=== PATIENT | male | born 1960 | race American Indian/Alaskan Native ===

== ENCOUNTER 2016-04-13 15:11 | Inpatient (IN) ==
[2016-04-13] MEDS ORDERED: 0.9 % SODIUM CHLORIDE 1,000 ML IV ONE (16:13)
[2016-04-13] MEDS ORDERED: LEVOFLOXACIN 500 MG/100 ML BAG IV ONE (16:15)
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
[2016-04-13 17:09] LABS: Basophils # (Auto) 0 K/mcL (0.0-0.3); Basophils % (Auto) 0.5 % (0.0-2.0); Eosinophils # (Auto) 0.2 K/mcL (0.0-0.7); Granulocytes % (Auto) 74.8 % (38.0-78.0); Lymphocytes # (Auto) 1.7 K/mcL (1.5-4.8); Mean Cell Volume 81.4 fL (80.0-100.0); Monocytes # (Auto) 0.6 K/mcL (0.1-0.9); Monocytes % (Auto) 5.7 % (1.0-9.0); Platelet Count 360 K/mcL (140-440); RBC 4.35 M/mcL (4.50-5.90)
[2016-04-13 17:30] LABS: ALT/SGPT 10 U/l (0-40); Albumin 3.4 gm/dL (3.2-5.2); Albumin/Globulin Ratio 0.8 (1.0-2.3); Alkaline Phosphatase 108 U/L (39-117); Blood Urea Nitrogen 16 mg/dl (6-20); C-Reactive Protein 6.2 mg/dl (0.0-0.8)
[2016-04-13] MEDS ORDERED: metroNIDAZOLE 500 MG/100 ML BAG IV ONE (17:37)
[2016-04-13] MEDS ORDERED: ONDANSETRON 4 MG/2 ML VIAL IV PRN (18:33)
[2016-04-13] MEDS ORDERED: LEVOFLOXACIN 500 MG/100 ML BAG IV SCH (18:45)
[2016-04-13] MEDS: 0.9 % SODIUM CHLORIDE 1,000 ML IV SCH (19:19)
[2016-04-13 19:44] LABS: Hemoglobin A1C 8.4 % HGB (4.0-6.0)
[2016-04-13] MEDS: metroNIDAZOLE 500 MG/100 ML BAG IV SCH (20:40)
[2016-04-13] MEDS ORDERED: INSULIN GLARGINE, HUMAN 1 UNIT/0.01 ML SQ SCH (21:00)
[2016-04-13] MEDS ORDERED: traZODone HCL 50 MG TABLET PO SCH (21:00)
[2016-04-13] MEDS: HYDROcodone/APAP 5/325MG TABLET PO PRN (22:23)
[2016-04-13] MEDS: DIAZEPAM 5 MG TABLET PO PRN (22:23)
[2016-04-13] MEDS: BACLOFEN 10 MG TABLET PO SCH (22:24)
[2016-04-14] MEDS: metroNIDAZOLE 500 MG/100 ML BAG IV SCH ×2 (02:51→21:57)
[2016-04-14] MEDS: HYDROcodone/APAP 5/325MG TABLET PO PRN ×3 (07:37→20:47)
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
[2016-04-14] MEDS ORDERED: BACLOFEN 10 MG TABLET PO PRN (08:16)
[2016-04-14] MEDS ORDERED: DIAZEPAM 5 MG TABLET PO SCH (08:30)
[2016-04-14] MEDS ORDERED: DOCUSATE SODIUM 100 MG CAPSULE PO SCH (09:00)
[2016-04-14] MEDS ORDERED: INSULIN LISPRO 1 UNIT/0.01 ML UNIT SQ SCH (09:00)
[2016-04-14] MEDS: DIAZEPAM 5 MG TABLET PO PRN (09:50)
[2016-04-14] MEDS: BACLOFEN 10 MG TABLET PO SCH ×2 (09:50→23:24)
[2016-04-14] MEDS ORDERED: LEVOFLOXACIN 500 MG/100 ML BAG IV SCH (10:00)
[2016-04-14] MEDS ORDERED: ERTAPENEM 1 GM in 0.9 % SODIUM CHLORIDE 50 ML IV SCH (11:00)
[2016-04-14] MEDS ORDERED: metroNIDAZOLE 500 MG/100 ML BAG IV SCH (14:00)
--- NOTE | 2016-04-14 14:08 | Internal Med Progress Note ---
Medical - PN: Subj Patient information: Note initiated : 04/14/16 at 2:06 pm Service Date, if different from initiated Date: [] Patient: Adam Rutherford 55 y/o M admitted on 04/13/16 for Wound on Sacrum/ Sepsis. Chief Complaint: [] Interval history: 04/13- patient admitted with scrotal/perineal cellulitis with extensive necrosis/ ulceration. Wound care consulted. Started on broad antibiotic coverage in light of multidrug resistant VRE/Klebsiella. Admitted to medical floor 04/14- patient due for surgical debridement. Case discussed with Dr. Rangel wound care physician. Continue antibiotic coverage. Keep nothing by mouth. Review postop. Pre-existing medical condition management on home meds including diabetes/ntispasmodics for paraplegic spasm - Constitutional Vitals: Vital Signs Temp Pulse Resp BP Pulse Ox 97.8 F 94 H 16 113/75 94 04/14/16 12:49 04/14/16 04:00 04/14/16 12:49 04/14/16 12:49 04/14/16 12:49 Period Temp Pulse Resp BP Sys/Hernandez Pulse Ox Last 24 Hr 97.5 F-98.8 F 94-116 16-24 105-126/65-75 91-94 Intake and Output 04/14/16 04/14/16 04/14/16 05:59 13:59 21:59 Intake Total 1779 / 1779 900 / 900 Output Total 1325 / 1325 950 / 950 Balance 454 / 454 -50 / -50 Weight 188 lb Patient Weight 04/15/16 05:59 Weight 188 lb Intake & Output: Intake & Output 04/14/16 04/14/16 04/14/16 05:59 13:59 21:59 Intake Total 1779 / 1779 900 / 900 Output Total 1325 / 1325 950 / 950 Balance 454 / 454 -50 / -50 Weight 188 lb Intake: IV 479 / 479 Sodium Chloride 0.9% 1, 379 / 379 000 ml @ 50 mls/hr IV . Q20H [facility] Rx#:[id number] Oral 1300 / 1300 900 / 900 Output: Urine Catheter Amount 1325 / 1325 950 / 950 Other: Meal Breakfast Percent of Meal Consumed 100% Feeding Ability Independent General appearance: cooperative, no acute distress Exam: alert oriented nonlabored breathing Nondistended abdomen colostomy in place extensive stasis changes Scrotal cellulitis/ulceration Medical - PN: Obj Da - Labs CBC & Chem 7: 04/13/16 16:32 04/13/16 16:32 Meds: Medications Acetaminophen/Hydrocodone Bitart (Fulshear 5/325mg) 1 tab PO Q4HP PRN PRN Reason: Pain Last Admin: 04/14/16 07:37 Dose: 1 tab Baclofen (Lioresal) 10 mg PO BID [facility] Last Admin: 04/14/16 09:50 Dose: 10 mg Diagnostic Test (Pha) (Accu-Chek) 1 each FS DAILY [facility] Last Admin: 04/14/16 07:30 Dose: 1 each Diazepam (Valium) 5 mg PO BIDP PRN PRN Reason: Muscle Spasm Last Admin: 04/14/16 09:50 Dose: 5 mg Docusate Sodium (Colace) 100 mg PO BID [facility] Last Admin: 04/14/16 09:50 Dose: 100 mg Sodium Chloride (Sodium Chloride 0.9%) 1,000 mls @ 50 mls/hr IV .Q20H [facility] Last Infusion: 04/14/16 03:53 Dose: 50 mls/hr Ertapenem 1 gm/ Sodium (Chloride) 50 mls @ 100 mls/hr IV DAILY [facility] Last Admin: 04/14/16 11:34 Dose: 100 mls/hr Metronidazole (Flagyl) 500 mg in 100 mls @ 100 mls/hr IV Q8 CATE Levofloxacin (Levaquin) 500 mg in 100 mls @ 100 mls/hr IV DAILY [facility] Last Admin: 04/14/16 12:12 Dose: 100 mls/hr Insulin Glargine (Lantus) 20 unit SQ HS [facility] Last Admin: 04/13/16 22:24 Dose: 20 unit Insulin Human Lispro (Humalog) 7 unit SQ DAILY [facility] Last Admin: 04/14/16 09:51 Dose: Not Given Ondansetron HCl (Zofran) 4 mg IV Q4HP PRN PRN Reason: Nausea And Vomiting Trazodone HCl (Desyrel) 50 mg PO HS [facility] Last Admin: 04/13/16 22:23 Dose: 50 mg Medical - PN: A/P - Time Spent With Patient Total time spent is greater than 50% in coordination of care (as documented) at patient's floor/unit and/or counseling patient: Greater than 35 minutes (1) Chronic ulcer of skin Problem details: Nonpressure chronic ulcer of skin of other sites limited to breakdown of skin Status: Chronic Assessment and plan: * perineal/scrotal cellulitis/ulcerationmanaged by wound care Issues managed by hospitalist service * [id number]-resistant organisms including VRE/Klebsiella on wound culture. Continue ertapenem * complicated UTI continue ertapenem. * DM type II continue basal prandial insulin * history of paraplegia-Continue antispasmodic as needed * DVT prophylaxis on heparin Plan * wound management per wound care physician Dr. Rangel * antibiotic coverage * pre-existing medical condition management as above * DVT prophylaxis Current Visit: No Medical - PN: Qual - Stroke Symptom Onset Unknown: No
[2016-04-14] MEDS ORDERED: HYDROmorphone 2 MG/ML SYRINGE IV ONE (14:20)
--- NOTE | 2016-04-14 14:47 | History and Physical Report ---
DATE OF ADMISSION: 04/13/2016 REASON FOR ADMISSION: Scrotal wound cellulitis/ulceration. HISTORY OF CHIEF COMPLAINT: The patient is a 55-year-old paraplegic with known history of diabetes and colostomy placement for sacral decubitus ulceration in the past. He lives in [place] along with his nephew. He has been battling with perineal ulceration nonhealing wound involving the scrotum and has been seen by [facility]. However, his symptoms have worsened with increasing swelling, malodorous discharge. He was evaluated at Dr. Rangel's office and was subsequently referred to [facility] for admission for surgical debridement in light of significant cellulitis and localized skin necrosis. Cultures revealed Klebsiella along with VRE, Citrobacter, and corynebacterium and also recent urine culture revealed multidrug resistant Klebsiella pneumonia. The patient was started on Levaquin along with Flagyl per ED physician. Hospitalist Service was requested for admission and for management of antibiotics and diabetes while the patient will be undergoing wound care along with operative debridement by Dr. Rangel. At the time of examination, the patient is alert and oriented. He is in no significant distress. Stable vitals. He was able to provide most of the history. He denies chest pain, shaking chills, drenching sweats, flank pain. He further denies productive sputum, cough, headache, or photophobia. REVIEW OF SYSTEMS: Ten-point review of system was performed and negative except the ones discussed above. PAST MEDICAL HISTORY: 1. Poorly controlled diabetes. 2. History of paraplegia. 3. Anxiety disorder. 4. Recurrent perineal and sacral ulcers/cellulitis. CURRENT MEDICATIONS: 1. Glargine 20 units at bedtime. 2. Baclofen 10 mg q.12h. 3. Diazepam 5 mg q.12h. 4. Lispro 7 units subq daily with meals. 5. Docusate 100 mg b.i.d. PAST SURGICAL HISTORY: 1. Extensive, including splenectomy. 2. Appendectomy. 3. Colonoscopy. 4. Foot surgery. 5. Back surgery. 6. Colostomy 2013 along with revision performed in 12/2013. FAMILY HISTORY: Significant for stomach cancer in mother and sister. SOCIAL HISTORY: Active smoker. No history of alcoholism. He is single and lives in [place]. He sees primary care physician at [facility], BRAXTON Callejas. ALLERGIES: 1. PENICILLIN. 2. MOXIFLOXACIN. PHYSICAL EXAMINATION: GENERAL: The patient is alert and oriented. He denies any active distress. BMI 30. Height 5 feet 6 inches. VITAL SIGNS: Blood pressure 109/65, respiration rate 20, temperature 98.3, pulse 116, sats 98% on room air. HEENT: Pupils symmetric. Oral cavity is dry. No ear or nose discharge. Head is normocephalic and atraumatic. NECK: No lymphadenopathy. HEART: S1, S2, regular rhythm. Ejection systolic murmur grade 1. Diminished breath sounds at bases. ABDOMEN: Soft. Minimally distended. Colostomy in place with no surrounding erythema. Significant scrotal discharge, redness, erythema and swelling along with ulceration at the base. LOWER EXTREMITIES: Stasis changes with extensive pigmentation. No joint swelling. Paraplegic. SKIN: Otherwise, no suspicious lesions. PSYCHIATRIC: Alert and cooperative. Minimal anxiety. NEURO: Paraplegic but at baseline. LABS AND IMAGING: White count 10.1, hemoglobin 11.3, sodium 130, potassium 4.6, creatinine 0.9, BUN 16. LFTs unremarkable. CRP 6.2. ASSESSMENT AND PLAN: A 55-year-old with scrotal/perineal ulcer and cellulitis. 1. Perineal cellulitis/scrotal cutaneous infection and necrosis. Will be managed by Wound Care with debridement. 2. Hospitalist consult for management of antibiotics and medical issues. a. Scrotal cellulitis. Multidrug resistant VRE along with Klebsiella. Continue ertapenem. b. Complicated UTI. Klebsiella. Continue ertapenem. c. Diabetes mellitus type 2. Continue basal prandial insulin. d. History of paraplegia. Continue baclofen and antispasmodic as needed. PLAN FOR TODAY: 1. Admit as inpatient. 2. Wound Care consultation. 3. Keep n.p.o. after midnight. 4. Preexisting medical condition management as above. 5. IV antibiotics including ertapenem. AA:william Job ID: [id number] Doc ID: [id number] Ace [facility] [place] DIVISIONKarla
[2016-04-14] MEDS: 0.9 % SODIUM CHLORIDE 1,000 ML IV SCH ×2 (15:01→19:50)
[2016-04-14] MEDS ORDERED: MIDAZOLAM 2 MG/2 ML VIAL IV ONE (15:20)
[2016-04-14] MEDS ORDERED: BACITRACIN 50,000 UNIT VIAL IR ONE (15:35)
[2016-04-14] MEDS ORDERED: CLINDAMYCIN 600 MG/4 ML VIAL IR ONE (15:35)
[2016-04-14] MEDS ORDERED: GENTAMICIN SULFATE 800 MG/20 ML VIAL IR ONE (15:35)
[2016-04-14] MEDS ORDERED: DIAZEPAM 5 MG TABLET PO PRN (16:20)
--- NOTE | 2016-04-14 18:11 | General Surgery Procedure Note ---
Date of procedure: Note initiated : 04/14/16 at 6:09 pm Service Date, if different from initiated Date: [] Pre-op diagnosis: Sepsis. CSSSI scrotum and right buttock ulcer Post-op diagnosis: same Procedure: Surgical Excision debridement, Tissue biopsies and pathology and pulse lavage irrigation Wound dimension 10 x 5 x 3 CM. Tissue excised slough, skin, sub cutaneous tissue and muscle Findings: Grade infected pressure ulcer with tissue necrosis. Anesthesia: [facility] Surgeon: Adeel Rangel Estimated blood loss: 20 Pathology: other Description of procedure: Surgical Excision , Pulse lavage irrigation and tissue samples for biopsy and culture sensitivity Condition: stable Disposition: floor
[2016-04-14] MEDS ORDERED: HEPARIN 5,000 UNIT/ML VIAL SQ SCH (21:00)
[2016-04-14] MEDS ORDERED: INSULIN GLARGINE, HUMAN 1 UNIT/0.01 ML SQ SCH ×2 (21:00)
[2016-04-14] MEDS: ONDANSETRON 4 MG/2 ML VIAL IV PRN (22:44)
[2016-04-14] MEDS: INSULIN GLARGINE, HUMAN 1 UNIT/0.01 ML SQ SCH (23:24)
[2016-04-14] MEDS: HEPARIN 5,000 UNIT/ML VIAL SQ SCH (23:24)
[2016-04-14] MEDS: traZODone HCL 50 MG TABLET PO SCH (23:24)
[2016-04-14] MEDS: DOCUSATE SODIUM 100 MG CAPSULE PO SCH (23:24)
[2016-04-15] MEDS: metroNIDAZOLE 500 MG/100 ML BAG IV SCH ×3 (04:57→21:48)
[2016-04-15 06:16] LABS: Mean Cell Volume 81.2 fL (80.0-100.0); Mean Corpuscular HGB Conc 32.4 g/dL (31.0-36.0); Mean Corpuscular Hemoglobin 26.3 pg (26.0-34.0); Platelet Count 340 K/mcL (140-440); RBC 4.17 M/mcL (4.50-5.90)
[2016-04-15 07:09] LABS: ALT/SGPT 8 U/l (0-40); Albumin 3.2 gm/dL (3.2-5.2); Albumin/Globulin Ratio 0.9 (1.0-2.3); Alkaline Phosphatase 103 U/L (39-117); Bilirubin,Direct < 0.2 mg/dL (0.0-0.3); Blood Urea Nitrogen 9 mg/dl (6-20); Gamma Glutamyl Transpeptidase 36 U/L (8-61); Magnesium 1.9 mg/dL (1.6-2.5); Phosphorous 3.8 mg/dL (2.7-4.5); Uric Acid 4.3 mg/dL (2.5-8.0)
[2016-04-15] MEDS: HYDROcodone/APAP 5/325MG TABLET PO PRN ×3 (08:01→23:13)
[2016-04-15 09:06] LABS: Anisocytosis 1+ (NONE SEEN); Lymphocytes % 29 % (15-49); Monocytes % (Manual) 4 % (1-9); Platelet Estimate NORMAL (NORMAL); RBC Morphology ABNORM (NORMAL); Segmented Neutrophils % 67 % (38-78)
--- NOTE | 2016-04-15 09:26 | Operative Note ---
DATE OF OPERATION: 04/14/2016 PREOPERATIVE DIAGNOSES: 1. Sepsis syndrome. 2. Complicated skin and skin structure infection involving posterior scrotum, perineal area and right buttock. POSTOPERATIVE DIAGNOSES: 1. Sepsis syndrome. 2. Complicated skin and skin structure infection involving posterior scrotum, perineal area and right buttock. OPERATION: Surgical excisional debridement. Pulse lavage irrigation. Tissue biopsies for pathology and cultures. Wound dimensions 10 cm x 5 cm x 3 cm. Tissue excised: Slough, skin, subcutaneous tissue and muscle. ANESTHESIA: MAC. SENIOR ACCOUNTING CLERK: Edilberto Woody CRNA. SURGEON: Adeel Rangel MD PROCEDURE NOTE: After obtaining informed consent, patient was taken to the operating room. He was placed in right lateral decubitus position. Under hemodynamic monitoring and pulse oxygen saturation check, the procedure was commenced. The area was widely cleaned, prepped and draped in the standard fashion. Intravenous analgesia was provided by the hvac tech. This patient did not need any local anesthetic as he is paraplegic. With appropriate exposure, using tooth pear picker and curved Figueroa scissors or #15 scalpel blade tangential excision of the necrotic slough was carried out from the center to the periphery of the wound. All the nonviable tissue was excised. Tissue specimens were sent for pathology and culture and sensitivity. Hemostasis was achieved with electrocoagulation Bovie, 2-0 Vicryl suture irrigation and ties. The wound was now copiously irrigated. We used over 3 liters of normal saline mixed with 50,000 units of bacitracin solution, 600 mg of clindamycin and 80 mg of gentamicin solution. Upon completion, the field was clean, pink, and hemostasis was satisfactory. Bright red oozing was noted from the wound edges and depth. Hemostasis was easily achieved with pressure and by topical placement of Surgicel. Later, this was reinforced with Xeroform gauze and overlying Kerlix roll soaked in a Betadine solution. Xeroform gauze was folded on itself and held in place with retention sutures of 0 Vicryl. This was further reinforced with ABD pad and Medipore dressings. ESTIMATED BLOOD LOSS: 20 mL Count of swabs, instruments and needles was reported to be correct. Procedure was well tolerated. He was taken from the operating room to the floor in stable satisfactory condition. VD:manish Job ID: [id number] Doc ID: [id number] Aedel Rangel MD
[2016-04-15] MEDS: ERTAPENEM 1 GM in 0.9 % SODIUM CHLORIDE 50 ML IV SCH (09:27)
[2016-04-15] MEDS: HEPARIN 5,000 UNIT/ML VIAL SQ SCH ×2 (09:30→21:47)
[2016-04-15] MEDS: INSULIN LISPRO 1 UNIT/0.01 ML UNIT SQ SCH ×4 (09:30→21:47)
[2016-04-15] MEDS: BACLOFEN 10 MG TABLET PO SCH ×2 (09:30→21:48)
[2016-04-15] MEDS: DOCUSATE SODIUM 100 MG CAPSULE PO SCH ×2 (09:30→21:48)
[2016-04-15] MEDS: LEVOFLOXACIN 500 MG/100 ML BAG IV SCH (10:15)
[2016-04-15] MEDS ORDERED: DEXTROSE 50% 50 ML VIAL IV PRN (11:11)
[2016-04-15] MEDS: 0.9 % SODIUM CHLORIDE 1,000 ML IV SCH ×2 (12:08→21:20)
--- NOTE | 2016-04-15 16:55 | General Surgery Progress Note ---
Subjective Patient reports: other (Patient had an uneventful night. Packing is still in place. Minimal drainage noted around the packing on his diaper.) Narrative: Note initiated : 04/15/16 at 4:51 pm Service Date, if different from initiated Date: [] Patient: Adam Rutherford 55 y/o M admitted on 04/13/16 for Wound on Sacrum/ Sepsis. Chief Complaint: [] Objective Temp Pulse Resp BP Pulse Ox 97.2 F L 100 H 16 104/62 91 04/15/16 15:23 04/15/16 15:23 04/15/16 15:23 04/15/16 15:23 04/15/16 15:23 Afebrile. Vital signs are stable. No changes in COLT. Soft stool in the colostomy bag. condom catheter. Clear urine in the bag postoperative dressing in place. No bleeding. Lab results were reviewed. Preliminary cultures reveal GPC and rare gram positive and gram-negative bacilli.. - Additional Data Intake & Output - Last 24 hours: Intake & Output 04/13/16 04/14/16 04/15/16 04/16/16 05:59 05:59 05:59 05:59 Intake Total 1779 / 2979 1200 / 1200 1190 / 1190 Output Total 1325 / 1325 3325 / 3325 1000 / 1000 Balance 454 / 1654 -2125 / -2125 190 / 190 Weight 188 lb 187 lb 8 oz - Labs 04/15/16 05:15 04/15/16 05:15 Diabetes panel 04/15/16 Range/Units 05:15 Sodium 135 (133-145) mmol/L Potassium 5.2 H (3.3-5.1) mmol/L Chloride 100 (96-108) mmol/L Carbon Dioxide 25 (22-30) mmol/L BUN 9 (6-20) mg/dl Creatinine 0.8 (0.7-1.2) mg/dl Glucose 138 H (70-105) mg/dL Calcium 8.7 (8.6-10.4) mg/dl AST 8 (0-37) U/l ALT 8 (0-40) U/l Alkaline Phosphatase 103 (39-117) U/L Total Protein 6.8 (5.9-8.4) gm/dL Albumin 3.2 (3.2-5.2) gm/dL Triglycerides 230 H (<150) mg/dl Calcium panel 04/15/16 Range/Units 05:15 Calcium 8.7 (8.6-10.4) mg/dl Phosphorus 3.8 (2.7-4.5) mg/dL Albumin 3.2 (3.2-5.2) gm/dL Pituitary panel 04/15/16 Range/Units 05:15 Sodium 135 (133-145) mmol/L Potassium 5.2 H (3.3-5.1) mmol/L Chloride 100 (96-108) mmol/L Carbon Dioxide 25 (22-30) mmol/L BUN 9 (6-20) mg/dl Creatinine 0.8 (0.7-1.2) mg/dl Glucose 138 H (70-105) mg/dL Calcium 8.7 (8.6-10.4) mg/dl Adrenal panel 04/15/16 Range/Units 05:15 Sodium 135 (133-145) mmol/L Potassium 5.2 H (3.3-5.1) mmol/L Chloride 100 (96-108) mmol/L Carbon Dioxide 25 (22-30) mmol/L BUN 9 (6-20) mg/dl Creatinine 0.8 (0.7-1.2) mg/dl Glucose 138 H (70-105) mg/dL Calcium 8.7 (8.6-10.4) mg/dl Total Bilirubin 0.2 (0.0-1.0) mg/dL AST 8 (0-37) U/l ALT 8 (0-40) U/l Alkaline Phosphatase 103 (39-117) U/L Total Protein 6.8 (5.9-8.4) gm/dL Albumin 3.2 (3.2-5.2) gm/dL Medical - PN: A/P - Time Spent With Patient Total time spent is greater than 50% in coordination of care (as documented) at patient's floor/unit and/or counseling patient: Patient is stable and progressing well from surgical point of view. We will remove his packing tomorrow. Further recommendations for wound care to follow. 15 - 24 minutes (1) Sepsis affecting skin Status: Acute Current Visit: Yes (2) Decubitus ulcer, buttock Status: Chronic Current Visit: Yes (3) Chronic ulcer of skin Problem details: Nonpressure chronic ulcer of skin of other sites limited to breakdown of skin Status: Chronic Current Visit: No
--- NOTE | 2016-04-15 21:12 | Internal Med Progress Note ---
Medical - PN: Subj Patient information: Note initiated : 04/15/16 at 9:12 pm Service Date, if different from initiated Date: [] Patient: Adam Rutherford 55 y/o M admitted on 04/13/16 for Wound on Sacrum/ Sepsis. Chief Complaint: [] Interval history: 04/13- patient admitted with scrotal/perineal cellulitis with extensive necrosis/ ulceration. Wound care consulted. Started on broad antibiotic coverage in light of multidrug resistant VRE/Klebsiella. Admitted to medical floor 04/14- patient due for surgical debridement. Case discussed with Dr. Rangel wound care physician. Continue antibiotic coverage. Keep nothing by mouth. Review postop. Pre-existing medical condition management on home meds including diabetes/ntispasmodics for paraplegic spasm 04/15-patient doing well status post operative debridement . refusing LTAC transfer. Ongoing wound care /antibiotics. no overnight fever chills or concerns per staff - Constitutional Vitals: Vital Signs Temp Pulse Resp BP Pulse Ox 98.4 F 103 H 12 127/80 91 04/15/16 19:49 04/15/16 19:49 04/15/16 19:49 04/15/16 19:49 04/15/16 19:49 Period Temp Pulse Resp BP Sys/Hernandez Pulse Ox Last 24 Hr 97.2 F-98.4 F 100-104 12-18 102-127/59-80 91-96 Intake and Output 04/15/16 04/15/16 04/15/16 05:59 13:59 21:59 Intake Total 300 / 300 990 / 990 1250 / 1250 Output Total 1525 / 1525 750 / 750 850 / 850 Balance -1225 / -1225 240 / 240 400 / 400 Intake & Output: Intake & Output 04/15/16 04/15/16 04/15/16 05:59 13:59 21:59 Intake Total 300 / 300 990 / 990 1250 / 1250 Output Total 1525 / 1525 750 / 750 850 / 850 Balance -1225 / -1225 240 / 240 400 / 400 Intake: IV 200 / 200 150 / 150 100 / 100 Sodium Chloride 0.9% 50 50 / 50 ml @ 100 mls/hr IV DAILY [facility] with [facility] 1 [facility] Rx#: [id number] Oral 100 / 100 840 / 840 1150 / 1150 Output: Urine Catheter Amount 1525 / 1525 750 / 750 250 / 250 Void Amount 600 / 600 Other: Meal Lunch Dinner Percent of Meal Consumed 100% 100% Feeding Ability Assist with Tray Set Up Independent # Bowel Movements 1 General appearance: cooperative, no acute distress Exam: lert oriented nonlabored breathing Nondistended abdomen Paraplegic changes lower extremity No anxiety Medical - PN: Obj Da - Labs CBC & Chem 7: 04/16/16 04:45 04/16/16 04:45 Labs: Abnormal Lab Results 04/15/16 04/15/16 05:15 05:15 RBC 4.17 L Hgb 11.0 L Hct 33.9 L RDW 16.0 H RBC Morphology Abnorm A Anisocytosis 1+ A Potassium 5.2 H Glucose 138 H Albumin/Globulin Ratio 0.9 L Triglycerides 230 H Meds: Medications Acetaminophen/Hydrocodone Bitart ([place] 5/325mg) 1 tab PO Q4HP PRN PRN Reason: Pain Last Admin: 04/15/16 16:50 Dose: 1 tab Baclofen (Lioresal) 10 mg PO BID [facility] Last Admin: 04/15/16 09:30 Dose: 10 mg Dextrose (Dextrose 50%) 0 ml IV UD PRN PRN Reason: Hypoglycemia Diagnostic Test (Pha) (Accu-Chek) 1 each FS ACHS [facility] Last Admin: 04/15/16 17:33 Dose: 1 each Diazepam (Valium) 5 mg PO BIDP PRN PRN Reason: Muscle Spasm Last Admin: 04/14/16 23:29 Dose: 5 mg Docusate Sodium (Colace) 100 mg PO BID [facility] Last Admin: 04/15/16 09:30 Dose: 100 mg Heparin Sodium (Porcine) (Heparin) 5,000 unit SQ Q12 [facility] Last Admin: 04/15/16 09:30 Dose: 5,000 unit Ertapenem 1 gm/ Sodium (Chloride) 50 mls @ 100 mls/hr IV DAILY [facility] Last Infusion: 04/15/16 10:00 Dose: Infused Levofloxacin (Levaquin) 500 mg in 100 mls @ 100 mls/hr IV DAILY [facility] Last Infusion: 04/15/16 11:20 Dose: Infused Sodium Chloride (Sodium Chloride 0.9%) 1,000 mls @ 50 mls/hr IV .Q20H [facility] Last Admin: 04/15/16 12:08 Dose: Not Given Metronidazole (Flagyl) 500 mg in 100 mls @ 100 mls/hr IV Q8 [facility] Last Infusion: 04/15/16 14:45 Dose: Infused Insulin Glargine (Lantus) 20 unit SQ HS [facility] Last Admin: 04/14/16 23:24 Dose: 20 unit Insulin Human Lispro (Humalog) 7 unit SQ DAILY [facility] Last Admin: 04/15/16 09:30 Dose: 7 unit Insulin Human Lispro (Humalog) 0 unit SQ ACHS [facility] PRN Reason: Protocol Last Admin: 04/15/16 17:33 Dose: 3 unit Ondansetron HCl (Zofran) 4 mg IV Q4HP PRN PRN Reason: Nausea And Vomiting Last Admin: 04/14/16 22:44 Dose: 4 mg Trazodone HCl (Desyrel) 50 mg PO HS [facility] Last Admin: 04/14/16 23:24 Dose: 50 mg Medical - PN: A/P - Time Spent With Patient Total time spent is greater than 50% in coordination of care (as documented) at patient's floor/unit and/or counseling patient: 25 - 35 minutes (1) Chronic ulcer of skin Status: Chronic Assessment and plan: * perineal/scrotal cellulitis/ulceration- postoperatively 1. managed by wound care. await wound culture. Continue antibiotics Issues managed by hospitalist service * Qtqdknpdfw-Bqoqg-dzwn-resistant organisms including VRE/Klebsiella on wound culture. await repeat blood cultures. * complicated Klebsiella UTI -continue ertapenem based on culture sensitivities. * DM type II continue basal prandial insulin * history of paraplegia-Continue antispasmodic as needed * DVT prophylaxis on heparin Plan * continue wound management per wound care physician Dr. Rangel * case management to arrange SNF transfer. Patient refusing to LTAC * pre-existing medical condition management as above Current Visit: No Medical - PN: Qual - Stroke Symptom Onset Unknown: No
[2016-04-15] MEDS: INSULIN GLARGINE, HUMAN 1 UNIT/0.01 ML SQ SCH (21:46)
[2016-04-15] MEDS: traZODone HCL 50 MG TABLET PO SCH (21:49)
[2016-04-16] MEDS: HYDROcodone/APAP 5/325MG TABLET PO PRN ×2 (03:22→08:28)
[2016-04-16] MEDS: metroNIDAZOLE 500 MG/100 ML BAG IV SCH ×3 (05:28→21:48)
[2016-04-16 05:42] LABS: Mean Cell Volume 81.9 fL (80.0-100.0); Mean Corpuscular HGB Conc 32.1 g/dL (31.0-36.0); Mean Corpuscular Hemoglobin 26.3 pg (26.0-34.0); Platelet Count 343 K/mcL (140-440); RBC 4.07 M/mcL (4.50-5.90); Red Cell Distribution Width 16.1 % (11.5-14.5)
[2016-04-16 06:44] LABS: ALT/SGPT 8 U/l (0-40); Albumin 3.2 gm/dL (3.2-5.2); Albumin/Globulin Ratio 0.9 (1.0-2.3); Alkaline Phosphatase 98 U/L (39-117); Bilirubin,Direct < 0.2 mg/dL (0.0-0.3); Blood Urea Nitrogen 14 mg/dl (6-20); Gamma Glutamyl Transpeptidase 34 U/L (8-61); Magnesium 1.8 mg/dL (1.6-2.5); Phosphorous 3.5 mg/dL (2.7-4.5); Uric Acid 4.7 mg/dL (2.5-8.0)
[2016-04-16] MEDS: DOCUSATE SODIUM 100 MG CAPSULE PO SCH ×2 (08:24→21:43)
[2016-04-16] MEDS: HEPARIN 5,000 UNIT/ML VIAL SQ SCH ×2 (08:24→21:44)
[2016-04-16] MEDS: BACLOFEN 10 MG TABLET PO SCH ×2 (08:24→21:48)
[2016-04-16] MEDS: INSULIN LISPRO 1 UNIT/0.01 ML UNIT SQ SCH ×5 (08:25→21:46)
[2016-04-16] MEDS: 0.9 % SODIUM CHLORIDE 1,000 ML IV SCH (08:25)
[2016-04-16] MEDS: ERTAPENEM 1 GM in 0.9 % SODIUM CHLORIDE 50 ML IV SCH (08:26)
[2016-04-16] MEDS: GENTAMICIN SULFATE 40 MG, CLINDAMYCIN 300 MG, BACITRACIN 25,000 UNIT in SODIUM CHLORIDE... IRR SCH ×2 (08:26→22:03)
[2016-04-16 08:54] LABS: Anisocytosis 1+ (NONE SEEN); Eosinophils % (Manual) 1 % (0-7); Lymphocytes % 30 % (15-49); Monocytes % (Manual) 5 % (1-9); Platelet Estimate NORMAL (NORMAL); RBC Morphology ABNORM (NORMAL); Segmented Neutrophils % 64 % (38-78)
[2016-04-16] MEDS: LEVOFLOXACIN 500 MG/100 ML BAG IV SCH (09:48)
[2016-04-16 11:26] LABS: Appearance,Urine HAZY; Bacteria,Urine FEW /hpf (0); Bilirubin,Urine NEG (NEG); Color,Urine YELLOW; Glucose,Urine (UA) NEGATIVE (NEG); Leukocyte Esterase,Urine 500 /uL (NEG); Mucus,Urine FEW /hpf (0); Nitrate,Urine NEG (NEG); Protein,Urine NEG (NEG); Specific Gravity,Urine 1.006 (1.000-1.035); Urine Blood 0.03 mg/dL (<0.03); Urine RBC 3 /hpf (0-1); Urine Squamous Epithelial Cell 5 /hpf (0-4); Urine WBC > 182 /hpf (0-4); Urobilinogen,Urine NEG (NEG)
--- NOTE | 2016-04-16 11:49 | Internal Med Progress Note ---
Medical - PN: Subj Patient information: Note initiated : 04/16/16 at 11:47 am Service Date, if different from initiated Date: [] Patient: Adam Rutherford 55 y/o M admitted on 04/13/16 for Wound on Sacrum/ Sepsis. Chief Complaint: [] Interval history: 04/13- patient admitted with scrotal/perineal cellulitis with extensive necrosis/ ulceration. Wound care consulted. Started on broad antibiotic coverage in light of multidrug resistant VRE/Klebsiella. Admitted to medical floor 04/14- patient due for surgical debridement. Case discussed with Dr. Rangel wound care physician. Continue antibiotic coverage. Keep nothing by mouth. Review postop. Pre-existing medical condition management on home meds including diabetes/ntispasmodics for paraplegic spasm 04/15-patient doing well status post operative debridement . refusing LTAC transfer. Ongoing wound care /antibiotics. no overnight fever chills or concerns per staff 04/16- case management coordinating local SNF transfer. Postoperative day 2. On antibiotic coverage. initial wound culture enterococci. Await final sensitivities for tailoring antibiotic as outpatient. No other concerns per staff - Constitutional Vitals: Vital Signs Temp Pulse Resp BP Pulse Ox 97.5 F L 102 H 14 109/73 91 04/16/16 07:38 04/16/16 07:38 04/16/16 07:38 04/16/16 07:38 04/16/16 07:38 Period Temp Pulse Resp BP Sys/Hernandez Pulse Ox Last 24 Hr 96.9 F-98.4 F 87-104 12-18 104-127/62-80 91-94 Intake and Output 04/15/16 04/16/16 04/16/16 21:59 05:59 13:59 Intake Total 2250 / 2250 500 / 500 800 / 800 Output Total 850 / 850 2375 / 2375 Balance 1400 / 1400 -1875 / -1875 800 / 800 Weight 183 lb Intake & Output: Intake & Output 04/15/16 04/16/16 04/16/16 21:59 05:59 13:59 Intake Total 2250 / 2250 500 / 500 800 / 800 Output Total 850 / 850 2375 / 2375 Balance 1400 / 1400 -1875 / -1875 800 / 800 Weight 183 lb Intake: IV 1100 / 1100 100 / 100 Sodium Chloride 0.9% 1, 1000 / 1000 000 ml @ 50 mls/hr IV . Q20H [facility] Rx#:[id number] Oral 1150 / 1150 400 / 400 800 / 800 Output: Urine Catheter Amount 250 / 250 2375 / 2375 Void Amount 600 / 600 Other: Meal Dinner Breakfast Percent of Meal Consumed 100% 100% Feeding Ability Independent Independent # Bowel Movements 1 General appearance: cooperative, no acute distress Exam: Nonlabored breathing nonanxious no significant changes since previous day Medical - PN: Obj Da - Labs CBC & Chem 7: 04/16/16 04:45 04/16/16 04:45 Labs: Abnormal Lab Results 04/16/16 04/16/16 04/16/16 10:27 04:45 04:45 RBC 4.07 L Hgb 10.7 L Hct 33.4 L RDW 16.1 H RBC Morphology Abnorm A Anisocytosis 1+ A Potassium Glucose 171 H Calcium 8.4 L Albumin/Globulin Ratio 0.9 L Triglycerides 222 H Urine Occult Blood 0.03 A Ur Leukocyte Esterase 500 A Urine RBC 3 H Urine WBC > 182 H Ur Squamous Epith Cells 5 H Urine Bacteria Few A 04/15/16 04/15/16 05:15 05:15 RBC 4.17 L Hgb 11.0 L Hct 33.9 L RDW 16.0 H RBC Morphology Abnorm A Anisocytosis 1+ A Potassium 5.2 H Glucose 138 H Calcium Albumin/Globulin Ratio 0.9 L Triglycerides 230 H Urine Occult Blood Ur Leukocyte Esterase Urine RBC Urine WBC Ur Squamous Epith Cells Urine Bacteria Meds: Medications Acetaminophen/Hydrocodone Bitart ([place] 5/325mg) 1 tab PO Q4HP PRN PRN Reason: Pain Last Admin: 04/16/16 08:28 Dose: 1 tab Baclofen (Lioresal) 10 mg PO BID [facility] Last Admin: 04/16/16 08:24 Dose: 10 mg Dextrose (Dextrose 50%) 0 ml IV UD PRN PRN Reason: Hypoglycemia Diagnostic Test (Pha) (Accu-Chek) 1 each FS ACHS [facility] Last Admin: 04/16/16 07:46 Dose: 1 each Diazepam (Valium) 5 mg PO BIDP PRN PRN Reason: Muscle Spasm Last Admin: 04/14/16 23:29 Dose: 5 mg Docusate Sodium (Colace) 100 mg PO BID [facility] Last Admin: 04/16/16 08:24 Dose: 100 mg Heparin Sodium (Porcine) (Heparin) 5,000 unit SQ Q12 [facility] Last Admin: 04/16/16 08:24 Dose: 5,000 unit Ertapenem 1 gm/ Sodium (Chloride) 50 mls @ 100 mls/hr IV DAILY [facility] Last Admin: 04/16/16 08:26 Dose: 100 mls/hr Levofloxacin (Levaquin) 500 mg in 100 mls @ 100 mls/hr IV DAILY [facility] Last Admin: 04/16/16 09:48 Dose: 100 mls/hr Sodium Chloride (Sodium Chloride 0.9%) 1,000 mls @ 50 mls/hr IV .Q20H [facility] Last Admin: 04/16/16 08:25 Dose: Not Given Metronidazole (Flagyl) 500 mg in 100 mls @ 100 mls/hr IV Q8 [facility] Last Admin: 04/16/16 05:28 Dose: 100 mls/hr Gentamicin Sulfate 40 mg/Clindamycin Phosphate 300 mg/Bacitracin 25,000 unit/ Sodium Chloride 503 mls @ 0 mls/hr IRR BID [facility] PRN Reason: As Directed Last Admin: 04/16/16 08:26 Dose: Not Given Insulin Glargine (Lantus) 20 unit SQ HS [facility] Last Admin: 04/15/16 21:46 Dose: 20 unit Insulin Human Lispro (Humalog) 7 unit SQ DAILY [facility] Last Admin: 04/16/16 08:25 Dose: 7 unit Insulin Human Lispro (Humalog) 0 unit SQ ACHS [facility] PRN Reason: Protocol Last Admin: 04/16/16 08:25 Dose: 1 unit Ondansetron HCl (Zofran) 4 mg IV Q4HP PRN PRN Reason: Nausea And Vomiting Last Admin: 04/14/16 22:44 Dose: 4 mg Trazodone HCl (Desyrel) 50 mg PO HS [facility] Last Admin: 04/15/16 21:49 Dose: 50 mg Medical - PN: A/P - Time Spent With Patient Total time spent is greater than 50% in coordination of care (as documented) at patient's floor/unit and/or counseling patient: 15 - 24 minutes (1) Chronic ulcer of skin Status: Chronic Assessment and plan: * Perineal/scrotal cellulitis/ulceration- postoperatively day 2. wound culture enterococci await sensitivities.. Continue antibiotics Issues managed by hospitalist service * Perineal/scrotal ykhpomnzgq-Wsbut-vrsj-resistant organisms including VRE/ Klebsiella on wound culture. await repeat blood cultures. * complicated Klebsiella UTI -continue ertapenem based on culture sensitivities. * DM type II continue basal prandial insulin * history of paraplegia-continue home meds * DVT prophylaxis on heparin Plan * continue wound management per Dr. Rangel * SNF transfer once cleared by wound care * pre-existing medical condition management as above * Jodi antibiotics based on sensitivities Current Visit: No Medical - PN: Qual - Stroke Symptom Onset Unknown: No
--- NOTE | 2016-04-16 15:13 | Surgical Pathology Report ---
HISTOLOGY SPECIMEN MICROSCOPIC DIAGNOSIS SOFT TISSUE, SACRUM, DEBRIDEMENT: -- FIBROVASCULAR SOFT TISSUE WITH ISCHEMIC AND SUPPURATIVE NECROSIS AND FIBROSIS. (SEH:adj) CLINICAL HISTORY Decubitus ulcer. GROSS DESCRIPTION Received in formalin labeled with the patient information, are three munoz-bennett tissue fragments from 1.3 to 4.8 cm. Cut surfaces are bennett-brown. Director Of Clinical Education sections submitted in one cassette. (SCB:adj) Electronically Signed by: Elisa Montalvo D.O.
--- NOTE | 2016-04-16 19:42 | General Surgery Progress Note ---
Subjective Patient reports: no new complaints, feels better, pain is less, tolerating a regular diet, bowel movement, afebrile, other (Packing removed from sacral wound. No further bleeding. No drainage and no odor.) Narrative: Note initiated : 04/16/16 at 7:39 pm Service Date, if different from initiated Date: [] Patient: Adam Rutherford 55 y/o M admitted on 04/13/16 for Wound on Sacrum/ Sepsis. Chief Complaint: [] Objective Temp Pulse Resp BP Pulse Ox 98.6 F 105 H 18 119/72 91 04/16/16 19:12 04/16/16 19:12 04/16/16 19:12 04/16/16 19:12 04/16/16 19:12 afebrile. Vital signs are stable. general physical exam within normal limits. Sacral packing is removed. Most of the wound is granulating. No order. Superficial demarcating eschar. This should respond to local wound Care using Vashe solution and topical GCP wet-to-dry dressing change 2 times a day. This patient is not capable of living by himself.. emergency preparedness manager from the [facility] clinic had called to inform that patient lives by himself. His houses not clean for more than a month. His his cousin is supposed to be staying with him but in reality does not. - Additional Data Intake & Output - Last 24 hours: Intake & Output 04/14/16 04/15/16 04/16/16 04/17/16 05:59 05:59 05:59 05:59 Intake Total 1779 / 2979 1200 / 1200 3740 / 3740 2190 / 2190 Output Total 1325 / 1325 3325 / 3325 3975 / 3975 1550 / 1550 Balance 454 / 1654 -2125 / -2125 -235 / -235 640 / 640 Weight 188 lb 187 lb 8 oz 183 lb - Labs 04/16/16 04:45 04/16/16 04:45 Diabetes panel 04/16/16 Range/Units 04:45 Sodium 133 (133-145) mmol/L Potassium 5.0 (3.3-5.1) mmol/L Chloride 97 (96-108) mmol/L Carbon Dioxide 26 (22-30) mmol/L BUN 14 (6-20) mg/dl Creatinine 0.8 (0.7-1.2) mg/dl Glucose 171 H (70-105) mg/dL Calcium 8.4 L (8.6-10.4) mg/dl AST 8 (0-37) U/l ALT 8 (0-40) U/l Alkaline Phosphatase 98 (39-117) U/L Total Protein 6.8 (5.9-8.4) gm/dL Albumin 3.2 (3.2-5.2) gm/dL Triglycerides 222 H (<150) mg/dl Calcium panel 04/16/16 Range/Units 04:45 Calcium 8.4 L (8.6-10.4) mg/dl Phosphorus 3.5 (2.7-4.5) mg/dL Albumin 3.2 (3.2-5.2) gm/dL Pituitary panel 04/16/16 Range/Units 04:45 Sodium 133 (133-145) mmol/L Potassium 5.0 (3.3-5.1) mmol/L Chloride 97 (96-108) mmol/L Carbon Dioxide 26 (22-30) mmol/L BUN 14 (6-20) mg/dl Creatinine 0.8 (0.7-1.2) mg/dl Glucose 171 H (70-105) mg/dL Calcium 8.4 L (8.6-10.4) mg/dl Adrenal panel 04/16/16 Range/Units 04:45 Sodium 133 (133-145) mmol/L Potassium 5.0 (3.3-5.1) mmol/L Chloride 97 (96-108) mmol/L Carbon Dioxide 26 (22-30) mmol/L BUN 14 (6-20) mg/dl Creatinine 0.8 (0.7-1.2) mg/dl Glucose 171 H (70-105) mg/dL Calcium 8.4 L (8.6-10.4) mg/dl Total Bilirubin 0.2 (0.0-1.0) mg/dL AST 8 (0-37) U/l ALT 8 (0-40) U/l Alkaline Phosphatase 98 (39-117) U/L Total Protein 6.8 (5.9-8.4) gm/dL Albumin 3.2 (3.2-5.2) gm/dL Medical - PN: A/P - Time Spent With Patient Total time spent is greater than 50% in coordination of care (as documented) at patient's floor/unit and/or counseling patient: Postoperative day #2. Satisfactory postoperative progress. urine culture to be sent. Wound culture has grown enterococci. Final sensitivity report awaited. continue current ongoing wound care orders. Okay to transfer patient to a rehabilitation or a long term facility. If discharged, follow-up the wound care clinic in 1 week. 15 - 24 minutes (1) Sepsis affecting skin Status: Acute Current Visit: Yes (2) Decubitus ulcer, buttock Status: Chronic Current Visit: Yes (3) Chronic ulcer of skin Status: Chronic Current Visit: No
[2016-04-16] MEDS: traZODone HCL 50 MG TABLET PO SCH (21:44)
[2016-04-16] MEDS: INSULIN GLARGINE, HUMAN 1 UNIT/0.01 ML SQ SCH (21:45)
[2016-04-17] MEDS: 0.9 % SODIUM CHLORIDE 1,000 ML IV SCH ×2 (00:01→04:32)
[2016-04-17] MEDS: metroNIDAZOLE 500 MG/100 ML BAG IV SCH ×3 (05:19→21:55)
[2016-04-17 06:01] LABS: Mean Cell Volume 81.9 fL (80.0-100.0); Mean Corpuscular HGB Conc 32.1 g/dL (31.0-36.0); Mean Corpuscular Hemoglobin 26.3 pg (26.0-34.0); Platelet Count 345 K/mcL (140-440); RBC 4.13 M/mcL (4.50-5.90)
[2016-04-17 06:51] LABS: ALT/SGPT 7 U/l (0-40); Albumin 3.2 gm/dL (3.2-5.2); Albumin/Globulin Ratio 0.9 (1.0-2.3); Alkaline Phosphatase 94 U/L (39-117); Bilirubin,Direct < 0.2 mg/dL (0.0-0.3); Blood Urea Nitrogen 17 mg/dl (6-20); Gamma Glutamyl Transpeptidase 33 U/L (8-61); Magnesium 1.8 mg/dL (1.6-2.5); Phosphorous 3.7 mg/dL (2.7-4.5); Uric Acid 4.8 mg/dL (2.5-8.0)
[2016-04-17 08:19] LABS: Anisocytosis 1+ (NONE SEEN); Eosinophils % (Manual) 5 % (0-7); Lymphocytes % 26 % (15-49); Monocytes % (Manual) 3 % (1-9); Platelet Estimate NORMAL (NORMAL); RBC Morphology ABNORMAL (NORMAL); Segmented Neutrophils % 66 % (38-78)
[2016-04-17] MEDS: INSULIN LISPRO 1 UNIT/0.01 ML UNIT SQ SCH ×5 (08:28→22:05)
[2016-04-17] MEDS: HEPARIN 5,000 UNIT/ML VIAL SQ SCH ×2 (08:29→21:55)
[2016-04-17] MEDS: BACLOFEN 10 MG TABLET PO SCH ×2 (08:29→21:56)
[2016-04-17] MEDS: DOCUSATE SODIUM 100 MG CAPSULE PO SCH ×2 (08:29→21:55)
[2016-04-17] MEDS: GENTAMICIN SULFATE 40 MG, CLINDAMYCIN 300 MG, BACITRACIN 25,000 UNIT in SODIUM CHLORIDE... IRR SCH ×2 (09:42→23:45)
[2016-04-17] MEDS: ERTAPENEM 1 GM in 0.9 % SODIUM CHLORIDE 50 ML IV SCH (09:43)
[2016-04-17] MEDS: HYDROcodone/APAP 5/325MG TABLET PO PRN ×4 (09:58→21:55)
[2016-04-17] MEDS ORDERED: INSULIN GLARGINE, HUMAN 1 UNIT/0.01 ML SQ ONE (10:30)
[2016-04-17] MEDS: LEVOFLOXACIN 500 MG/100 ML BAG IV SCH (10:40)
[2016-04-17] MEDS: sitaGLIPtin 100 MG TABLET PO ONE ×2 (10:44→10:48)
[2016-04-17] MEDS ORDERED: metFORMIN 500 MG TAB.XL.24H PO SCH (11:00)
--- NOTE | 2016-04-17 12:25 | Internal Med Progress Note ---
Medical - PN: Subj Patient information: Note initiated : 04/17/16 at 12:25 pm Service Date, if different from initiated Date: [] Patient: Adam Rutherford 55 y/o M admitted on 04/13/16 for Wound on Sacrum/ Sepsis. Chief Complaint: [] Interval history: 04/13- patient admitted with scrotal/perineal cellulitis with extensive necrosis/ ulceration. Wound care consulted. Started on broad antibiotic coverage in light of multidrug resistant VRE/Klebsiella. Admitted to medical floor 04/14- patient due for surgical debridement. Case discussed with Dr. Rangel wound care physician. Continue antibiotic coverage. Keep nothing by mouth. Review postop. Pre-existing medical condition management on home meds including diabetes/ntispasmodics for paraplegic spasm 04/15-patient doing well status post operative debridement . refusing LTAC transfer. Ongoing wound care /antibiotics. no overnight fever chills or concerns per staff 04/16- case management coordinating local SNF transfer. Postoperative day 2. On antibiotic coverage. initial wound culture enterococci. Await final sensitivities for tailoring antibiotic as outpatient. No other concerns per staff 04/17- patient on ertapenem/levaquin for enterococci/strep viridans on culture. Continue wound care. Await SNF transfer likely Tuesday or Tuesday. UA significant pyuria. On antibiotic coverage. no overnight fever chills or concerns per staff - Constitutional Vitals: Vital Signs Temp Pulse Resp BP Pulse Ox 97.5 F L 99 H 12 122/73 93 04/17/16 11:25 04/17/16 11:25 04/17/16 11:25 04/17/16 11:25 04/17/16 11:25 Period Temp Pulse Resp BP Sys/Hernandez Pulse Ox Last 24 Hr 97.5 F-98.6 F 99-114 12-20 112-122/61-73 90-93 Intake and Output 04/16/16 04/17/16 04/17/16 21:59 05:59 13:59 Intake Total 2040 / 2040 1100 / 1100 100 / 100 Output Total 1850 / 1850 1050 / 1050 1000 / 1000 Balance 190 / 190 50 / 50 -900 / -900 Weight 185 lb 8 oz Intake & Output: Intake & Output 04/16/16 04/17/16 04/17/16 21:59 05:59 13:59 Intake Total 2039 / 2039 1100 / 1100 100 / 100 Output Total 1850 / 1850 1050 / 1050 1000 / 1000 Balance 190 / 190 50 / 50 -900 / -900 Weight 185 lb 8 oz Intake: IV 1100 / 1100 100 / 100 Sodium Chloride 0.9% 1, 1000 / 1000 000 ml @ 50 mls/hr IV . Q20H [facility] Rx#:[id number] Oral 940 / 940 1000 / 1000 100 / 100 Output: Urine Catheter Amount 1850 / 1850 1050 / 1050 500 / 500 Stool 500 / 500 Other: Meal Dinner Breakfast Percent of Meal Consumed 100% 50% Feeding Ability Independent # Bowel Movements 1 General appearance: cooperative, no acute distress Exam: No anxiety lert oriented Nonlabored breathing no ymphedema Medical - PN: Obj Da - Labs CBC & Chem 7: 04/18/16 05:11 04/18/16 05:11 Labs: Abnormal Lab Results 04/17/16 04/17/16 04/16/16 04:40 04:40 10:27 RBC 4.13 L Hgb 10.9 L Hct 33.8 L RDW 16.0 H RBC Morphology Anisocytosis 1+ A Potassium Glucose 194 H Calcium Albumin/Globulin Ratio 0.9 L Triglycerides 203 H Urine Occult Blood 0.03 A Ur Leukocyte Esterase 500 A Urine RBC 3 H Urine WBC > 182 H Ur Squamous Epith Cells 5 H Urine Bacteria Few A 04/16/16 04/16/16 04/15/16 04:45 04:45 05:15 RBC 4.07 L Hgb 10.7 L Hct 33.4 L RDW 16.1 H RBC Morphology Abnorm A Anisocytosis 1+ A Potassium 5.2 H Glucose 171 H 138 H Calcium 8.4 L Albumin/Globulin Ratio 0.9 L 0.9 L Triglycerides 222 H 230 H Urine Occult Blood Ur Leukocyte Esterase Urine RBC Urine WBC Ur Squamous Epith Cells Urine Bacteria 04/15/16 05:15 RBC 4.17 L Hgb 11.0 L Hct 33.9 L RDW 16.0 H RBC Morphology Abnorm A Anisocytosis 1+ A Potassium Glucose Calcium Albumin/Globulin Ratio Triglycerides Urine Occult Blood Ur Leukocyte Esterase Urine RBC Urine WBC Ur Squamous Epith Cells Urine Bacteria Meds: Medications Acetaminophen/Hydrocodone Bitart ([place] 5/325mg) 1 tab PO Q4HP PRN PRN Reason: Pain Last Admin: 04/17/16 09:58 Dose: 1 tab Baclofen (Lioresal) 10 mg PO BID [facility] Last Admin: 04/17/16 08:29 Dose: 10 mg Dextrose (Dextrose 50%) 0 ml IV UD PRN PRN Reason: Hypoglycemia Diagnostic Test (Pha) (Accu-Chek) 1 each FS ACHS [facility] Last Admin: 04/17/16 12:07 Dose: 1 each Diazepam (Valium) 5 mg PO BIDP PRN PRN Reason: Muscle Spasm Last Admin: 04/14/16 23:29 Dose: 5 mg Docusate Sodium (Colace) 100 mg PO BID [facility] Last Admin: 04/17/16 08:29 Dose: 100 mg Heparin Sodium (Porcine) (Heparin) 5,000 unit SQ Q12 [facility] Last Admin: 04/17/16 08:29 Dose: 5,000 unit Ertapenem 1 gm/ Sodium (Chloride) 50 mls @ 100 mls/hr IV DAILY [facility] Last Admin: 04/17/16 09:43 Dose: 100 mls/hr Levofloxacin (Levaquin) 500 mg in 100 mls @ 100 mls/hr IV DAILY [facility] Last Admin: 04/17/16 10:40 Dose: 100 mls/hr Sodium Chloride (Sodium Chloride 0.9%) 1,000 mls @ 50 mls/hr IV .Q20H [facility] Last Admin: 04/17/16 04:32 Dose: Not Given Metronidazole (Flagyl) 500 mg in 100 mls @ 100 mls/hr IV Q8 [facility] Last Admin: 04/17/16 05:19 Dose: 100 mls/hr Gentamicin Sulfate 40 mg/Clindamycin Phosphate 300 mg/Bacitracin 25,000 unit/ Sodium Chloride 503 mls @ 0 mls/hr IRR BID [facility] PRN Reason: As Directed Last Admin: 04/17/16 09:42 Dose: 1 mls/hr Insulin Glargine (Lantus) 26 unit SQ HS [facility] Insulin Human Lispro (Humalog) 7 unit SQ DAILY [facility] Last Admin: 04/17/16 08:28 Dose: 7 unit Insulin Human Lispro (Humalog) 0 unit SQ ACHS [facility] PRN Reason: Protocol Last Admin: 04/17/16 12:06 Dose: 3 unit Ondansetron HCl (Zofran) 4 mg IV Q4HP PRN PRN Reason: Nausea And Vomiting Last Admin: 04/14/16 22:44 Dose: 4 mg Trazodone HCl (Desyrel) 50 mg PO HS [facility] Last Admin: 04/16/16 21:44 Dose: 50 mg Medical - PN: A/P - Time Spent With Patient Total time spent is greater than 50% in coordination of care (as documented) at patient's floor/unit and/or counseling patient: 15 - 24 minutes (1) Chronic ulcer of skin Status: Chronic Assessment and plan: * Perineal/scrotal cellulitis/ulceration- postoperatively day 3. wound culture enterococci/strep viridans.continue Levaquin/rtapenem Issues managed by hospitalist service * Perineal/scrotal jzlyadawta-Flsat-klis-resistant organisms including enterococci/strep viridans. continue Levaquin/ertapenem * complicated Klebsiella UTI -on ertapenem based on culture sensitivities. repeat UA in 48 hours * DM type II continue basal prandial insulin * history of paraplegia-continue home meds * DVT prophylaxis on heparin Plan * continue wound management per Dr. Rangel * await SNF transfer * patient refusing short-acting insulin/oral antidiabetics * pre-existing medical condition management as above * repeat UAIn 48 hours Current Visit: No Medical - PN: Qual - Stroke Symptom Onset Unknown: No
--- NOTE | 2016-04-17 17:51 | General Surgery Progress Note ---
Subjective Patient reports: no new complaints, feels better, tolerating a regular diet, bowel movement, afebrile, other (Tachycardia resolved. Normal WBC. Wound c/s Enterococcus, S pending. ?? VRE) Narrative: Note initiated : 04/17/16 at 5:49 pm Service Date, if different from initiated Date: [] Patient: Adam Rutherford 55 y/o M admitted on 04/13/16 for Wound on Sacrum/ Sepsis. Chief Complaint: [] Objective Temp Pulse Resp BP Pulse Ox 98.1 F 74 14 119/74 93 04/17/16 15:33 04/17/16 15:33 04/17/16 15:33 04/17/16 15:33 04/17/16 15:33 AVSS. No changes COLT. Wound dressings changed BID Lab results reviewed. - Additional Data Intake & Output - Last 24 hours: Intake & Output 04/15/16 04/16/16 04/17/16 04/18/16 05:59 05:59 05:59 05:59 Intake Total 1200 / 1200 3740 / 3740 4290 / 4290 700 / 700 Output Total 3325 / 3325 3975 / 3975 3700 / 3700 1350 / 1350 Balance -2125 / -2125 -235 / -235 590 / 590 -650 / -650 Weight 187 lb 8 oz 183 lb 185 lb 8 oz - Labs 04/17/16 04:40 04/17/16 04:40 Diabetes panel 04/17/16 Range/Units 04:40 Sodium 136 (133-145) mmol/L Potassium 4.8 (3.3-5.1) mmol/L Chloride 99 (96-108) mmol/L Carbon Dioxide 28 (22-30) mmol/L BUN 17 (6-20) mg/dl Creatinine 0.7 (0.7-1.2) mg/dl Glucose 194 H (70-105) mg/dL Calcium 8.7 (8.6-10.4) mg/dl AST 8 (0-37) U/l ALT 7 (0-40) U/l Alkaline Phosphatase 94 (39-117) U/L Total Protein 6.7 (5.9-8.4) gm/dL Albumin 3.2 (3.2-5.2) gm/dL Triglycerides 203 H (<150) mg/dl Calcium panel 04/17/16 Range/Units 04:40 Calcium 8.7 (8.6-10.4) mg/dl Phosphorus 3.7 (2.7-4.5) mg/dL Albumin 3.2 (3.2-5.2) gm/dL Pituitary panel 04/17/16 Range/Units 04:40 Sodium 136 (133-145) mmol/L Potassium 4.8 (3.3-5.1) mmol/L Chloride 99 (96-108) mmol/L Carbon Dioxide 28 (22-30) mmol/L BUN 17 (6-20) mg/dl Creatinine 0.7 (0.7-1.2) mg/dl Glucose 194 H (70-105) mg/dL Calcium 8.7 (8.6-10.4) mg/dl Adrenal panel 04/17/16 Range/Units 04:40 Sodium 136 (133-145) mmol/L Potassium 4.8 (3.3-5.1) mmol/L Chloride 99 (96-108) mmol/L Carbon Dioxide 28 (22-30) mmol/L BUN 17 (6-20) mg/dl Creatinine 0.7 (0.7-1.2) mg/dl Glucose 194 H (70-105) mg/dL Calcium 8.7 (8.6-10.4) mg/dl Total Bilirubin < 0.2 (0.0-1.0) mg/dL AST 8 (0-37) U/l ALT 7 (0-40) U/l Alkaline Phosphatase 94 (39-117) U/L Total Protein 6.7 (5.9-8.4) gm/dL Albumin 3.2 (3.2-5.2) gm/dL Medical - PN: A/P - Time Spent With Patient Total time spent is greater than 50% in coordination of care (as documented) at patient's floor/unit and/or counseling patient: No interval changes in clinical examination. Clinical improvement in SIRS . Await final sensitivity reports and VRE status ( ? Colonized ) Continue present treatment and local wound care. CW / SW input for d/c planning is awaited. 15 - 24 minutes (1) Sepsis affecting skin Status: Acute Current Visit: Yes (2) Decubitus ulcer, buttock Status: Chronic Current Visit: Yes (3) Chronic ulcer of skin Status: Chronic Current Visit: No
[2016-04-17] MEDS: traZODone HCL 50 MG TABLET PO SCH (21:56)
[2016-04-17] MEDS: INSULIN GLARGINE, HUMAN 1 UNIT/0.01 ML SQ SCH (22:04)
[2016-04-18] MEDS: 0.9 % SODIUM CHLORIDE 1,000 ML IV SCH (03:37)
[2016-04-18] MEDS: HYDROcodone/APAP 5/325MG TABLET PO PRN ×4 (03:46→22:21)
[2016-04-18] MEDS: metroNIDAZOLE 500 MG/100 ML BAG IV SCH (05:00)
[2016-04-18 06:16] LABS: Mean Cell Volume 81.9 fL (80.0-100.0); Mean Corpuscular HGB Conc 32.4 g/dL (31.0-36.0); Mean Corpuscular Hemoglobin 26.5 pg (26.0-34.0); Platelet Count 348 K/mcL (140-440); RBC 3.99 M/mcL (4.50-5.90)
[2016-04-18 06:33] LABS: ALT/SGPT 10 U/l (0-40); Albumin 3.2 gm/dL (3.2-5.2); Albumin/Globulin Ratio 0.9 (1.0-2.3); Alkaline Phosphatase 91 U/L (39-117); Bilirubin,Direct < 0.2 mg/dL (0.0-0.3); Blood Urea Nitrogen 15 mg/dl (6-20); Gamma Glutamyl Transpeptidase 32 U/L (8-61); Magnesium 1.8 mg/dL (1.6-2.5); Phosphorous 4.2 mg/dL (2.7-4.5); Uric Acid 4.9 mg/dL (2.5-8.0)
[2016-04-18 08:11] LABS: Anisocytosis 1+ (NONE SEEN); Band Neutrophils % 1 % (0-10); Eosinophils % (Manual) 5 % (0-7); Lymphocytes % 28 % (15-49); Monocytes % (Manual) 5 % (1-9); Myelocytes % 1 % (0-0); Platelet Estimate NORMAL (NORMAL); RBC Morphology ABNORMAL (NORMAL); Segmented Neutrophils % 60 % (38-78)
[2016-04-18] MEDS: INSULIN LISPRO 1 UNIT/0.01 ML UNIT SQ SCH ×5 (08:15→22:19)
[2016-04-18] MEDS: HEPARIN 5,000 UNIT/ML VIAL SQ SCH ×2 (08:16→22:18)
[2016-04-18] MEDS: ERTAPENEM 1 GM in 0.9 % SODIUM CHLORIDE 50 ML IV SCH (08:17)
[2016-04-18] MEDS ORDERED: sitaGLIPtin 100 MG TABLET PO SCH (09:00)
[2016-04-18] MEDS: DOCUSATE SODIUM 100 MG CAPSULE PO SCH ×2 (09:20→22:18)
[2016-04-18] MEDS: LEVOFLOXACIN 500 MG/100 ML BAG IV SCH (09:20)
[2016-04-18] MEDS: BACLOFEN 10 MG TABLET PO SCH ×2 (09:20→22:19)
--- NOTE | 2016-04-18 10:42 | Internal Med Progress Note ---
Medical - PN: Subj Patient information: Note initiated : 04/18/16 at 10:40 am Service Date, if different from initiated Date: [] Patient: Adam Rutherford 55 y/o M admitted on 04/13/16 for Wound on Sacrum/ Sepsis. Chief Complaint: [] Interval history: 04/13- patient admitted with scrotal/perineal cellulitis with extensive necrosis/ ulceration. Wound care consulted. Started on broad antibiotic coverage in light of multidrug resistant VRE/Klebsiella. Admitted to medical floor 04/14- patient due for surgical debridement. Case discussed with Dr. Rangel wound care physician. Continue antibiotic coverage. Keep nothing by mouth. Review postop. Pre-existing medical condition management on home meds including diabetes/ntispasmodics for paraplegic spasm 04/15-patient doing well status post operative debridement . refusing LTAC transfer. Ongoing wound care /antibiotics. no overnight fever chills or concerns per staff 04/16- case management coordinating local SNF transfer. Postoperative day 2. On antibiotic coverage. initial wound culture enterococci. Await final sensitivities for tailoring antibiotic as outpatient. No other concerns per staff 04/17- patient on ertapenem/levaquin for enterococci/strep viridans on culture. Continue wound care. Await SNF transfer likely Tuesday or Tuesday. UA significant pyuria. On antibiotic coverage. no overnight fever chills or concerns per staff 04/18- patient doing well. Blood sugars at goal. Refusing metformin/oral hypoglycemics. Patient uses basal insulin as sliding scale and despite education he would not agree to changes. no significant events over 24 hours - Constitutional Vitals: Vital Signs Temp Pulse Resp BP Pulse Ox 97.1 F L 110 H 12 94/65 91 04/18/16 06:55 04/18/16 06:55 04/18/16 06:55 04/18/16 06:55 04/18/16 06:55 Period Temp Pulse Resp BP Sys/Hernandez Pulse Ox Last 24 Hr 97.1 F-98.1 F 74-114 12-16 94-123/59-78 91-94 Intake and Output 04/17/16 04/18/16 04/18/16 21:59 05:59 13:59 Intake Total 1960 / 1960 220 / 220 360 / 360 Output Total 350 / 350 800 / 800 Balance 1610 / 1610 -580 / -580 360 / 360 Weight 184 lb 8 oz Intake & Output: Intake & Output 04/17/16 04/18/16 04/18/16 21:59 05:59 13:59 Intake Total 1960 / 1960 220 / 220 360 / 360 Output Total 350 / 350 800 / 800 Balance 1610 / 1610 -580 / -580 360 / 360 Weight 184 lb 8 oz Intake: IV 1100 / 1100 100 / 100 Sodium Chloride 0.9% 1, 1000 / 1000 000 ml @ 50 mls/hr IV . Q20H [facility] Rx#:[id number] Oral 860 / 860 120 / 120 360 / 360 Output: Urine Catheter Amount 350 / 350 800 / 800 Other: Meal Dinner Nourishment/Supplement Breakfast Percent of Meal Consumed 100% 100% 75% Feeding Ability Independent Independent General appearance: no acute distress Exam: resting comfortably Working on his laptop Nonlabored breathing pendulous abdomen Medical - PN: Obj Da - Labs CBC & Chem 7: 04/18/16 05:11 04/18/16 05:11 Labs: Abnormal Lab Results 04/18/16 04/18/16 04/17/16 05:11 05:11 04:40 RBC 3.99 L Hgb 10.6 L Hct 32.7 L RDW 16.0 H Myelocytes % 1 H RBC Morphology Anisocytosis 1+ A Glucose 153 H 194 H Calcium 8.3 L Albumin/Globulin Ratio 0.9 L 0.9 L Triglycerides 415 H 203 H Urine Occult Blood Ur Leukocyte Esterase Urine RBC Urine WBC Ur Squamous Epith Cells Urine Bacteria 04/17/16 04/16/16 04/16/16 04:40 10:27 04:45 RBC 4.13 L Hgb 10.9 L Hct 33.8 L RDW 16.0 H Myelocytes % RBC Morphology Anisocytosis 1+ A Glucose 171 H Calcium 8.4 L Albumin/Globulin Ratio 0.9 L Triglycerides 222 H Urine Occult Blood 0.03 A Ur Leukocyte Esterase 500 A Urine RBC 3 H Urine WBC > 182 H Ur Squamous Epith Cells 5 H Urine Bacteria Few A 04/16/16 04:45 RBC 4.07 L Hgb 10.7 L Hct 33.4 L RDW 16.1 H Myelocytes % RBC Morphology Abnorm A Anisocytosis 1+ A Glucose Calcium Albumin/Globulin Ratio Triglycerides Urine Occult Blood Ur Leukocyte Esterase Urine RBC Urine WBC Ur Squamous Epith Cells Urine Bacteria Meds: Medications Acetaminophen/Hydrocodone Bitart ([place] 5/325mg) 1 tab PO Q4HP PRN PRN Reason: Pain Last Admin: 04/18/16 09:19 Dose: 1 tab Baclofen (Lioresal) 10 mg PO BID [facility] Last Admin: 04/18/16 09:20 Dose: 10 mg Dextrose (Dextrose 50%) 0 ml IV UD PRN PRN Reason: Hypoglycemia Diagnostic Test (Pha) (Accu-Chek) 1 each FS ACHS [facility] Last Admin: 04/18/16 08:14 Dose: 1 each Diazepam (Valium) 5 mg PO BIDP PRN PRN Reason: Muscle Spasm Last Admin: 04/14/16 23:29 Dose: 5 mg Docusate Sodium (Colace) 100 mg PO BID [facility] Last Admin: 04/18/16 09:20 Dose: 100 mg Heparin Sodium (Porcine) (Heparin) 5,000 unit SQ Q12 [facility] Last Admin: 04/18/16 08:16 Dose: 5,000 unit Ertapenem 1 gm/ Sodium (Chloride) 50 mls @ 100 mls/hr IV DAILY [facility] Last Admin: 04/18/16 08:17 Dose: 100 mls/hr Levofloxacin (Levaquin) 500 mg in 100 mls @ 100 mls/hr IV DAILY [facility] Last Admin: 04/18/16 09:20 Dose: 100 mls/hr Sodium Chloride (Sodium Chloride 0.9%) 1,000 mls @ 50 mls/hr IV .Q20H [facility] Last Admin: 04/18/16 03:37 Dose: 50 mls/hr Gentamicin Sulfate 40 mg/Clindamycin Phosphate 300 mg/Bacitracin 25,000 unit/ Sodium Chloride 503 mls @ 0 mls/hr IRR BID [facility] PRN Reason: As Directed Last Admin: 04/17/16 23:45 Dose: 1 mls/hr Insulin Glargine (Lantus) 26 unit SQ HS [facility] Last Admin: 04/17/16 22:04 Dose: 26 unit Insulin Human Lispro (Humalog) 7 unit SQ DAILY [facility] Last Admin: 04/18/16 08:15 Dose: 7 unit Insulin Human Lispro (Humalog) 0 unit SQ ACHS [facility] PRN Reason: Protocol Last Admin: 04/18/16 08:16 Dose: 2 unit Ondansetron HCl (Zofran) 4 mg IV Q4HP PRN PRN Reason: Nausea And Vomiting Last Admin: 04/14/16 22:44 Dose: 4 mg Trazodone HCl (Desyrel) 50 mg PO HS [facility] Last Admin: 04/17/16 21:56 Dose: 50 mg Medical - PN: A/P - Time Spent With Patient Total time spent is greater than 50% in coordination of care (as documented) at patient's floor/unit and/or counseling patient: 15 - 24 minutes (1) Chronic ulcer of skin Status: Chronic Assessment and plan: * Perineal/scrotal cellulitis/ulceration- postoperatively day 4. on antibiotic coverage for enterococci/[ Issues managed by hospitalist service * Perineal/scrotal cellulitis- clinically improving on antibiotics * complicated Klebsiella UTI -on ABX. Repeat UA in 24 hours * DM type II continue basal prandial insulin * history of paraplegia-continue home meds * DVT prophylaxis on heparin Plan * continue wound management per Dr. Rangel * antibiotic coverage. Await sensitivities * UA in 24 hours * possible SNF transfer in 48 hours Current Visit: No Medical - PN: Qual - Stroke Symptom Onset Unknown: No
[2016-04-18] MEDS: GENTAMICIN SULFATE 40 MG, CLINDAMYCIN 300 MG, BACITRACIN 25,000 UNIT in SODIUM CHLORIDE... IRR SCH (10:44)
[2016-04-18] MEDS: ONDANSETRON 4 MG/2 ML VIAL IV PRN (14:27)
[2016-04-18] MEDS: LINEZOLID 600 MG TABLET PO SCH (22:18)
[2016-04-18] MEDS: traZODone HCL 50 MG TABLET PO SCH (22:18)
[2016-04-18] MEDS: INSULIN GLARGINE, HUMAN 1 UNIT/0.01 ML SQ SCH (22:19)
[2016-04-19] MEDS: GENTAMICIN SULFATE 40 MG, CLINDAMYCIN 300 MG, BACITRACIN 25,000 UNIT in SODIUM CHLORIDE... IRR SCH ×3 (00:45→21:10)
[2016-04-19] MEDS: HYDROcodone/APAP 5/325MG TABLET PO PRN ×4 (01:56→20:54)
[2016-04-19] MEDS: 0.9 % SODIUM CHLORIDE 1,000 ML IV SCH ×2 (03:24→18:35)
[2016-04-19] MEDS: INSULIN LISPRO 1 UNIT/0.01 ML UNIT SQ SCH ×5 (08:50→21:09)
[2016-04-19] MEDS: HEPARIN 5,000 UNIT/ML VIAL SQ SCH ×2 (08:51→21:09)
[2016-04-19] MEDS: BACLOFEN 10 MG TABLET PO SCH ×2 (08:51→21:09)
[2016-04-19] MEDS: LINEZOLID 600 MG TABLET PO SCH ×2 (08:51→21:08)
[2016-04-19] MEDS: LEVOFLOXACIN 500 MG/100 ML BAG IV SCH (08:52)
[2016-04-19] MEDS: DOCUSATE SODIUM 100 MG CAPSULE PO SCH ×2 (09:00→21:08)
[2016-04-19 12:22] LABS: Appearance,Urine CLEAR; Bacteria,Urine FEW /hpf (0); Bilirubin,Urine NEG (NEG); Color,Urine YELLOW; Glucose,Urine (UA) NEGATIVE (NEG); Leukocyte Esterase,Urine 500 /uL (NEG); Mucus,Urine FEW /hpf (0); Nitrate,Urine NEG (NEG); Protein,Urine NEG (NEG); Specific Gravity,Urine 1.011 (1.000-1.035); Urine Blood NEG mg/dL (<0.03); Urine RBC 21 /hpf (0-1); Urine Squamous Epithelial Cell < 1 /hpf (0-4); Urine WBC > 182 /hpf (0-4); Urobilinogen,Urine NEG (NEG)
--- NOTE | 2016-04-19 17:00 | Internal Med Progress Note ---
Medical - PN: Subj Patient information: Note initiated : 04/19/16 at 5:00 pm Service Date, if different from initiated Date: [] Patient: Adam Rutherford 55 y/o M admitted on 04/13/16 for Wound on Sacrum/ Sepsis. Chief Complaint: [] Interval history: 04/13- patient admitted with scrotal/perineal cellulitis with extensive necrosis/ ulceration. Wound care consulted. Started on broad antibiotic coverage in light of multidrug resistant VRE/Klebsiella. Admitted to medical floor 04/14- patient due for surgical debridement. Case discussed with Dr. Rangel wound care physician. Continue antibiotic coverage. Keep nothing by mouth. Review postop. Pre-existing medical condition management on home meds including diabetes/ntispasmodics for paraplegic spasm 04/15-patient doing well status post operative debridement . refusing LTAC transfer. Ongoing wound care /antibiotics. no overnight fever chills or concerns per staff 04/16- case management coordinating local SNF transfer. Postoperative day 2. On antibiotic coverage. initial wound culture enterococci. Await final sensitivities for tailoring antibiotic as outpatient. No other concerns per staff 04/17- patient on ertapenem/levaquin for enterococci/strep viridans on culture. Continue wound care. Await SNF transfer likely Tuesday or Tuesday. UA significant pyuria. On antibiotic coverage. no overnight fever chills or concerns per staff 04/18- patient doing well. Blood sugars at goal. Refusing metformin/oral hypoglycemics. Patient uses basal insulin as sliding scale and despite education he would not agree to changes. no significant events over 24 hours 04/19- o changes since previous day.alert oriented. Ongoing wound care. Await placement. On antibiotic coverage. - Constitutional Vitals: Vital Signs Temp Pulse Resp BP Pulse Ox 98.4 F 101 H 18 128/82 90 04/19/16 12:00 04/19/16 12:00 04/19/16 12:00 04/19/16 12:00 04/19/16 12:00 Period Temp Pulse Resp BP Sys/Hernandez Pulse Ox Last 24 Hr 96.9 F-98.4 F 95-101 16-18 92-128/54-82 90-92 Intake and Output 04/19/16 04/19/16 04/19/16 05:59 13:59 21:59 Intake Total 1700 / 1700 240 / 240 Output Total 950 / 950 1350 / 1350 Balance 750 / 750 -1110 / -1110 Weight 185 lb Patient Weight 04/20/16 05:59 Weight 185 lb Intake & Output: Intake & Output 04/19/16 04/19/16 04/19/16 05:59 13:59 21:59 Intake Total 1700 / 1700 240 / 240 Output Total 950 / 950 1350 / 1350 Balance 750 / 750 -1110 / -1110 Weight 185 lb Intake: IV 1000 / 1000 Sodium Chloride 0.9% 1, 1000 / 1000 000 ml @ 50 mls/hr IV . Q20H [facility] Rx#:[id number] Oral 700 / 700 240 / 240 Output: Urine Catheter Amount 950 / 950 1350 / 1350 Other: Meal Lunch Percent of Meal Consumed 100% General appearance: no acute distress Exam: paraplegic at baseline scrotal/perineal wounds wrapped in dressing No anxiety No pallor Medical - PN: Obj Da - Labs CBC & Chem 7: 04/18/16 05:11 04/18/16 05:11 Labs: Abnormal Lab Results 04/19/16 04/18/16 04/18/16 10:31 05:11 05:11 RBC 3.99 L Hgb 10.6 L Hct 32.7 L RDW 16.0 H Myelocytes % 1 H Anisocytosis 1+ A Glucose 153 H Calcium 8.3 L Albumin/Globulin Ratio 0.9 L Triglycerides 415 H Ur Leukocyte Esterase 500 A Urine RBC 21 H Urine WBC > 182 H Urine Bacteria Few A 04/17/16 04/17/16 04:40 04:40 RBC 4.13 L Hgb 10.9 L Hct 33.8 L RDW 16.0 H Myelocytes % Anisocytosis 1+ A Glucose 194 H Calcium Albumin/Globulin Ratio 0.9 L Triglycerides 203 H Ur Leukocyte Esterase Urine RBC Urine WBC Urine Bacteria Meds: Medications Acetaminophen/Hydrocodone Bitart ([place] 5/325mg) 1 tab PO Q4HP PRN PRN Reason: Pain Last Admin: 04/19/16 14:33 Dose: 1 tab Baclofen (Lioresal) 10 mg PO BID [facility] Last Admin: 04/19/16 08:51 Dose: 10 mg Dextrose (Dextrose 50%) 0 ml IV UD PRN PRN Reason: Hypoglycemia Diagnostic Test (Pha) (Accu-Chek) 1 each FS ACHS [facility] Last Admin: 04/19/16 11:29 Dose: 1 each Diazepam (Valium) 5 mg PO BIDP PRN PRN Reason: Muscle Spasm Last Admin: 04/14/16 23:29 Dose: 5 mg Docusate Sodium (Colace) 100 mg PO BID [facility] Last Admin: 04/18/16 22:18 Dose: 100 mg Heparin Sodium (Porcine) (Heparin) 5,000 unit SQ Q12 [facility] Last Admin: 04/19/16 08:51 Dose: 5,000 unit Levofloxacin (Levaquin) 500 mg in 100 mls @ 100 mls/hr IV DAILY [facility] Last Admin: 04/19/16 08:52 Dose: 100 mls/hr Sodium Chloride (Sodium Chloride 0.9%) 1,000 mls @ 50 mls/hr IV .Q20H [facility] Last Admin: 04/19/16 03:24 Dose: 50 mls/hr Gentamicin Sulfate 40 mg/Clindamycin Phosphate 300 mg/Bacitracin 25,000 unit/ Sodium Chloride 503 mls @ 0 mls/hr IRR BID [facility] PRN Reason: As Directed Last Admin: 04/19/16 08:57 Dose: 1 mls/hr Insulin Glargine (Lantus) 26 unit SQ HS [facility] Last Admin: 04/18/16 22:19 Dose: 26 unit Insulin Human Lispro (Humalog) 7 unit SQ DAILY [facility] Last Admin: 04/19/16 08:50 Dose: 7 unit Insulin Human Lispro (Humalog) 0 unit SQ [facility] PRN Reason: Protocol Last Admin: 04/19/16 11:29 Dose: Not Given Linezolid (Zyvox) 600 mg PO Q12 [facility] Last Admin: 04/19/16 08:51 Dose: 600 mg Ondansetron HCl (Zofran) 4 mg IV Q4HP PRN PRN Reason: Nausea And Vomiting Last Admin: 04/18/16 14:27 Dose: 4 mg Trazodone HCl (Desyrel) 50 mg PO HS [facility] Last Admin: 04/18/16 22:18 Dose: 50 mg Medical - PN: A/P - Time Spent With Patient Total time spent is greater than 50% in coordination of care (as documented) at patient's floor/unit and/or counseling patient: 15 - 24 minutes (1) Chronic ulcer of skin Status: Chronic Assessment and plan: * Perineal/scrotal cellulitis/ulceration- postoperatively day 5. on antibiotic coverage for VRE- linezolid. Issues managed by hospitalist service * Perineal/scrotal cellulitis- clinically improving on antibiotics * complicated Klebsiella UTI -persistent pyuria. Await culture sensitivities * DM type II continue basal prandial insulin * history of paraplegia-continue home meds * DVT prophylaxis on heparin Plan * continue wound management per Dr. Rangel * DC antivirals and 48 hours(status post 10 day treatment) * await urine cultures * await SNF transfer Current Visit: No Medical - PN: Qual - Stroke Symptom Onset Unknown: No
--- NOTE | 2016-04-19 19:39 | General Surgery Progress Note ---
Subjective Patient reports: no new complaints, other (postoperative day #5. ) Narrative: Note initiated : 04/19/16 at 7:34 pm Service Date, if different from initiated Date: [] Patient: Adam Rutherford 55 y/o M admitted on 04/13/16 for Wound on Sacrum/ Sepsis. Chief Complaint: [] Objective Temp Pulse Resp BP Pulse Ox 97.9 F 100 H 18 133/79 88 L 04/19/16 16:00 04/19/16 16:00 04/19/16 16:00 04/19/16 16:00 04/19/16 16:00 Afebrile. Vital signs are stable. General physical examination is unchanged from before. Scrotal perineal right buttock wound was examined in the morning along with Chary and nursing staff on the [facility] surgical floor. this wound is responding to local wound care. There is significant of the wound extending towards the prostate area. This however seems to be demarcating well. There is no odor. Granulations around the wound are pink and moist. Microbiology results reveal growth of VRE, Streptococcus viridans and an anaerobic bacteria. VRE however seems to be sensitive to ampicillin. - Additional Data Intake & Output - Last 24 hours: Intake & Output 04/17/16 04/18/16 04/19/16 04/20/16 05:59 05:59 05:59 05:59 Intake Total 4290 / 4290 2530 / 2530 3440 / 3440 720 / 720 Output Total 3700 / 3700 2150 / 2150 3100 / 3100 1350 / 1350 Balance 590 / 590 380 / 380 340 / 340 -630 / -630 Weight 185 lb 8 oz 184 lb 8 oz 185 lb 185 lb - Labs 04/18/16 05:11 04/18/16 05:11 Medical - PN: A/P - Time Spent With Patient Total time spent is greater than 50% in coordination of care (as documented) . Septic inflammatory response syndrome due to complicated skin and skin structure infection After initial debridement, patient is getting local wound care. mental health case manager and social workers are working on getting a placement for this patient in the local area. Patient does not want to go anywhere else for rehabilitation. He is not capable of living by himself. plan discharge to a detention facility with continuation of local wound systemic oral antibiotics. Follow-up at the wound care center in 1 week for continuation of ongoing wound care management. 15 - 24 minutes (1) Sepsis affecting skin Status: Acute Current Visit: Yes (2) Decubitus ulcer, buttock Status: Chronic Current Visit: Yes (3) Chronic ulcer of skin Status: Chronic Current Visit: No
[2016-04-19] MEDS: traZODone HCL 50 MG TABLET PO SCH (21:08)
[2016-04-19] MEDS: INSULIN GLARGINE, HUMAN 1 UNIT/0.01 ML SQ SCH (21:09)
[2016-04-20] MEDS: 0.9 % SODIUM CHLORIDE 1,000 ML IV SCH ×3 (00:32→22:04)
[2016-04-20] MEDS: HYDROcodone/APAP 5/325MG TABLET PO PRN ×2 (01:00→20:36)
[2016-04-20] MEDS: INSULIN LISPRO 1 UNIT/0.01 ML UNIT SQ SCH ×5 (07:57→22:34)
[2016-04-20] MEDS: LEVOFLOXACIN 500 MG/100 ML BAG IV SCH (09:07)
[2016-04-20] MEDS: HEPARIN 5,000 UNIT/ML VIAL SQ SCH ×2 (09:08→22:04)
[2016-04-20] MEDS: LINEZOLID 600 MG TABLET PO SCH ×2 (09:08→22:02)
[2016-04-20] MEDS: BACLOFEN 10 MG TABLET PO SCH ×2 (09:08→22:03)
[2016-04-20] MEDS: GENTAMICIN SULFATE 40 MG, CLINDAMYCIN 300 MG, BACITRACIN 25,000 UNIT in SODIUM CHLORIDE... IRR SCH ×2 (09:08→22:04)
[2016-04-20] MEDS: DOCUSATE SODIUM 100 MG CAPSULE PO SCH ×2 (09:08→22:03)
--- NOTE | 2016-04-20 09:52 | Internal Med Progress Note ---
Medical - PN: Subj Patient information: Note initiated : 04/20/16 at 9:52 am Service Date, if different from initiated Date: [] Patient: Adam Rutherford 55 y/o M admitted on 04/13/16 for Wound on Sacrum/ Sepsis. Chief Complaint: [] Interval history: 04/13- patient admitted with scrotal/perineal cellulitis with extensive necrosis/ ulceration. Wound care consulted. Started on broad antibiotic coverage in light of multidrug resistant VRE/Klebsiella. Admitted to medical floor 04/14- patient due for surgical debridement. Case discussed with Dr. Rangel wound care physician. Continue antibiotic coverage. Keep nothing by mouth. Review postop. Pre-existing medical condition management on home meds including diabetes/ntispasmodics for paraplegic spasm 04/15-patient doing well status post operative debridement . refusing LTAC transfer. Ongoing wound care /antibiotics. no overnight fever chills or concerns per staff 04/16- case management coordinating local SNF transfer. Postoperative day 2. On antibiotic coverage. initial wound culture enterococci. Await final sensitivities for tailoring antibiotic as outpatient. No other concerns per staff 04/17- patient on ertapenem/levaquin for enterococci/strep viridans on culture. Continue wound care. Await SNF transfer likely Tuesday or Tuesday. UA significant pyuria. On antibiotic coverage. no overnight fever chills or concerns per staff 04/18- patient doing well. Blood sugars at goal. Refusing metformin/oral hypoglycemics. Patient uses basal insulin as sliding scale and despite education he would not agree to changes. no significant events over 24 hours 04/19- o changes since previous day.alert oriented. Ongoing wound care. Await placement. On antibiotic coverage. 04/20- Pt on abx. improving cellulitis, post op day 7. VRE on Cx. Persistant pyuria. Per physician ID recommends zosyn and daptomycin to continue for wound infection. no overnight F/C/N/V. Pat complains of perineal itching. Stable BGs and hemodynamics - Constitutional Vitals: Vital Signs Temp Pulse Resp BP Pulse Ox 97.4 F L 93 H 18 122/71 91 04/20/16 03:39 04/20/16 03:39 04/20/16 03:39 04/20/16 03:39 04/20/16 03:39 Period Temp Pulse Resp BP Sys/Hernandez Pulse Ox Last 24 Hr 97.4 F-98.4 F 93-102 18-18 122-133/71-82 88-92 Intake and Output 04/19/16 04/20/16 04/20/16 21:59 05:59 13:59 Intake Total 1280 / 1280 2000 / 2000 Output Total 1400 / 1400 Balance 1280 / 1280 600 / 600 Weight 185 lb 8 oz Intake & Output: Intake & Output 04/19/16 04/20/16 04/20/16 21:59 05:59 13:59 Intake Total 1280 / 1280 2000 / 2000 Output Total 1400 / 1400 Balance 1280 / 1280 600 / 600 Weight 185 lb 8 oz Intake: IV 1000 / 1000 Sodium Chloride 0.9% 1, 1000 / 1000 000 ml @ 50 mls/hr IV . Q20H [facility] Rx#:[id number] Oral 1280 / 1280 1000 / 1000 Output: Urine Catheter Amount 1400 / 1400 Other: Meal Dinner Percent of Meal Consumed 100% # Bowel Movements 1 General appearance: cooperative, no acute distress Exam: alert and oriented. Non labored breathing Nt,ND abd No anxiety Medical - PN: Obj Da - Labs CBC & Chem 7: 04/18/16 05:11 04/18/16 05:11 Labs: Abnormal Lab Results 04/19/16 04/18/16 04/18/16 10:31 05:11 05:11 RBC 3.99 L Hgb 10.6 L Hct 32.7 L RDW 16.0 H Myelocytes % 1 H Anisocytosis 1+ A Glucose 153 H Calcium 8.3 L Albumin/Globulin Ratio 0.9 L Triglycerides 415 H Ur Leukocyte Esterase 500 A Urine RBC 21 H Urine WBC > 182 H Urine Bacteria Few A Meds: Medications Acetaminophen/Hydrocodone Bitart ([place] 5/325mg) 1 tab PO Q4HP PRN PRN Reason: Pain Last Admin: 04/20/16 01:00 Dose: 1 tab Baclofen (Lioresal) 10 mg PO BID [facility] Last Admin: 04/20/16 09:08 Dose: 10 mg Dextrose (Dextrose 50%) 0 ml IV UD PRN PRN Reason: Hypoglycemia Diagnostic Test (Pha) (Accu-Chek) 1 each FS ACHS [facility] Last Admin: 04/20/16 07:21 Dose: 1 each Diazepam (Valium) 5 mg PO BIDP PRN PRN Reason: Muscle Spasm Last Admin: 04/14/16 23:29 Dose: 5 mg Docusate Sodium (Colace) 100 mg PO BID [facility] Last Admin: 04/20/16 09:08 Dose: 100 mg Heparin Sodium (Porcine) (Heparin) 5,000 unit SQ Q12 [facility] Last Admin: 04/20/16 09:08 Dose: 5,000 unit Levofloxacin (Levaquin) 500 mg in 100 mls @ 100 mls/hr IV DAILY [facility] Last Admin: 04/20/16 09:07 Dose: 100 mls/hr Sodium Chloride (Sodium Chloride 0.9%) 1,000 mls @ 50 mls/hr IV .Q20H [facility] Last Admin: 04/20/16 00:32 Dose: 50 mls/hr Gentamicin Sulfate 40 mg/Clindamycin Phosphate 300 mg/Bacitracin 25,000 unit/ Sodium Chloride 503 mls @ 0 mls/hr IRR BID [facility] PRN Reason: As Directed Last Admin: 04/20/16 09:08 Dose: 1 mls/hr Insulin Glargine (Lantus) 26 unit SQ HS [facility] Last Admin: 04/19/16 21:09 Dose: 26 unit Insulin Human Lispro (Humalog) 7 unit SQ DAILY [facility] Last Admin: 04/20/16 07:57 Dose: 7 unit Insulin Human Lispro (Humalog) 0 unit SQ ACHS [facility] PRN Reason: Protocol Last Admin: 04/20/16 07:57 Dose: 1 unit Linezolid (Zyvox) 600 mg PO Q12 [facility] Last Admin: 04/20/16 09:08 Dose: 600 mg Ondansetron HCl (Zofran) 4 mg IV Q4HP PRN PRN Reason: Nausea And Vomiting Last Admin: 04/18/16 14:27 Dose: 4 mg Trazodone HCl (Desyrel) 50 mg PO HS [facility] Last Admin: 04/19/16 21:08 Dose: 50 mg Medical - PN: A/P - Time Spent With Patient Total time spent is greater than 50% in coordination of care (as documented) at patient's floor/unit and/or counseling patient: 15 - 24 minutes (1) Chronic ulcer of skin Status: Chronic Assessment and plan: * Perineal/scrotal cellulitis/ulceration- postoperatively day 5. on antibiotic coverage for VRE- linezolid. Issues managed by hospitalist service * Perineal/scrotal cellulitis- clinically improving on antibiotics * complicated Klebsiella UTI -persistent pyuria. Await culture sensitivities * DM type II continue basal prandial insulin * history of paraplegia-continue home meds * DVT prophylaxis on heparin Plan * continue wound management per Dr. Rangel * Abx as per Dr Karla chaney * await LTC transfer Current Visit: No Medical - PN: Qual - Stroke Symptom Onset Unknown: No
--- NOTE | 2016-04-20 11:30 | General Surgery Progress Note ---
Subjective Patient reports: no new complaints, other (Ongoing local wound care. Wound cultures reviewed with Dr. FULTON. Infectious Disease specialist.) Narrative: Note initiated : 04/20/16 at 11:28 am Service Date, if different from initiated Date: [] Patient: Adam Rutherford 55 y/o M admitted on 04/13/16 for Wound on Sacrum/ Sepsis. Chief Complaint: [] Objective Temp Pulse Resp BP Pulse Ox 97.9 F 102 H 18 123/76 92 04/20/16 11:05 04/20/16 11:05 04/20/16 11:05 04/20/16 11:05 04/20/16 08:00 AVSS. No acute changes in COLT. Perineal wound is clean and covered with progressive granulating areas. Wound care reviewed with Danii GARSIA and Med Surg nursing staff. - Additional Data Intake & Output - Last 24 hours: Intake & Output 04/18/16 04/19/16 04/20/16 04/21/16 05:59 05:59 05:59 05:59 Intake Total 2530 / 2530 3440 / 3440 3620 / 3620 600 / 600 Output Total 2150 / 2150 3100 / 3100 2750 / 2750 Balance 380 / 380 340 / 340 870 / 870 600 / 600 Weight 184 lb 8 oz 185 lb 185 lb 8 oz - Labs 04/18/16 05:11 04/18/16 05:11 Medical - PN: A/P - Time Spent With Patient Total time spent is greater than 50% in coordination of care (as documented) at patient's floor/unit and/or counseling patient: Patient is stable from wound care point of view. ID Recommendations: Reg. Antibiotics coverage. DAPTOMYCIN 6 mg/kg dose ( for VRE coverage ) Zosyn 3. 375 Grams Q 6 hrly. Patient CAN BE transferred to a SNF or Rehab institution with ongoing wound care and antibiotic coverage. 15 - 24 minutes (1) Sepsis affecting skin Status: Acute Current Visit: Yes (2) Decubitus ulcer, buttock Status: Chronic Current Visit: Yes (3) Chronic ulcer of skin Status: Chronic Current Visit: No
[2016-04-20] MEDS: traZODone HCL 50 MG TABLET PO SCH (22:03)
[2016-04-20] MEDS: INSULIN GLARGINE, HUMAN 1 UNIT/0.01 ML SQ SCH (22:34)
[2016-04-21] MEDS: HYDROcodone/APAP 5/325MG TABLET PO PRN ×5 (01:50→23:56)
[2016-04-21] MEDS: INSULIN LISPRO 1 UNIT/0.01 ML UNIT SQ SCH ×5 (08:01→21:28)
[2016-04-21] MEDS: 0.9 % SODIUM CHLORIDE 1,000 ML IV SCH ×2 (08:01→19:29)
[2016-04-21] MEDS: HEPARIN 5,000 UNIT/ML VIAL SQ SCH ×2 (09:02→21:27)
[2016-04-21] MEDS: LINEZOLID 600 MG TABLET PO SCH (09:03)
[2016-04-21] MEDS: BACLOFEN 10 MG TABLET PO SCH ×2 (09:03→21:27)
[2016-04-21] MEDS: DOCUSATE SODIUM 100 MG CAPSULE PO SCH ×2 (09:03→21:27)
[2016-04-21] MEDS: LEVOFLOXACIN 500 MG/100 ML BAG IV SCH (09:04)
[2016-04-21] MEDS: GENTAMICIN SULFATE 40 MG, CLINDAMYCIN 300 MG, BACITRACIN 25,000 UNIT in SODIUM CHLORIDE... IRR SCH ×2 (10:33→21:40)
[2016-04-21] MEDS ORDERED: FLUCONAZOLE 100 MG TABLET PO ONE (14:56)
--- NOTE | 2016-04-21 15:12 | Internal Med Progress Note ---
Medical - PN: Subj Patient information: Note initiated : 04/21/16 at 3:09 pm Service Date, if different from initiated Date: [] Patient: Adam Rutherford 55 y/o M admitted on 04/13/16 for Wound on Sacrum/ Sepsis. Chief Complaint: [] Interval history: 04/13- Patient admitted with scrotal/perineal cellulitis with extensive necrosis/ ulceration. Wound care consulted. Started on broad antibiotic coverage in light of multidrug resistant VRE/Klebsiella. Admitted to medical floor 04/14- Patient due for surgical debridement. Case discussed with Dr. Rangel wound care physician. Continue antibiotic coverage. Keep nothing by mouth. Review postop. Pre-existing medical condition management on home meds including diabetes/ntispasmodics for paraplegic spasm 04/15- Patient doing well status post operative debridement . refusing LTAC transfer. Ongoing wound care /antibiotics. no overnight fever chills or concerns per staff 04/16- Case management coordinating local SNF transfer. Postoperative day 2. On antibiotic coverage. initial wound culture enterococci. Await final sensitivities for tailoring antibiotic as outpatient. No other concerns per staff 04/17- Patient on ertapenem/levaquin for enterococci/strep viridans on culture. Continue wound care. Await SNF transfer likely Tuesday or Tuesday. UA significant pyuria. On antibiotic coverage. no overnight fever chills or concerns per staff 04/18- Patient doing well. Blood sugars at goal. Refusing metformin/oral hypoglycemics. Patient uses basal insulin as sliding scale and despite education he would not agree to changes. no significant events over 24 hours 04/19- No changes since previous day. alert oriented. Ongoing wound care. Await placement. On antibiotic coverage per physician. 04/20- Pt on abx. Improving cellulitis, post op day 7. VRE on Cx. Persistant pyuria. Per physician ID recommends zosyn and daptomycin to continue for wound infection. no overnight F/C/N/V. Pt complains of perineal itching. Stable BGs and hemodynamics 04/21- On ertapenem/dapto( per ID recs from Dr Rangel's progress note), ongoing wound care, Anticipate discharge to LTAC in AM for continued wound care. No F/C/N/SOB/local discharge, WC ongoing. Post op day 8 - Constitutional Vitals: Vital Signs Temp Pulse Resp BP Pulse Ox 96.8 F L 86 20 129/81 94 04/21/16 07:43 04/21/16 04:00 04/21/16 07:43 04/21/16 07:43 04/21/16 07:43 Period Temp Pulse Resp BP Sys/Hernandez Pulse Ox Last 24 Hr 96.8 F-98.2 F 84-109 18-22 118-134/74-85 91-94 Intake and Output 04/21/16 04/21/16 04/21/16 05:59 13:59 21:59 Intake Total 350 / 350 550 / 550 Output Total 575 / 575 1450 / 1450 Balance -225 / -225 -900 / -900 Intake & Output: Intake & Output 04/21/16 04/21/16 04/21/16 05:59 13:59 21:59 Intake Total 350 / 350 550 / 550 Output Total 575 / 575 1450 / 1450 Balance -225 / -225 -900 / -900 Intake: Oral 350 / 350 550 / 550 Output: Urine Catheter Amount 575 / 575 1450 / 1450 Other: Meal Breakfast Percent of Meal Consumed 100% General appearance: cooperative, no acute distress Exam: Paraplegic at baseline. Wound dressing in place No anxiety Non labored breathing Medical - PN: Obj Da - Labs CBC & Chem 7: 04/18/16 05:11 04/18/16 05:11 Labs: Abnormal Lab Results 04/19/16 10:31 Ur Leukocyte Esterase 500 A Urine RBC 21 H Urine WBC > 182 H Urine Bacteria Few A Meds: Medications Acetaminophen/Hydrocodone Bitart ([place] 5/325mg) 1 tab PO Q4HP PRN PRN Reason: Pain Last Admin: 04/21/16 13:04 Dose: 1 tab Baclofen (Lioresal) 10 mg PO BID [facility] Last Admin: 04/21/16 09:03 Dose: 10 mg Daptomycin (Cubicin) 510 mg 6 mg/kg (510 mg) IV Q24H [facility] Dextrose (Dextrose 50%) 0 ml IV UD PRN PRN Reason: Hypoglycemia Diagnostic Test (Pha) (Accu-Chek) 1 each FS ACHS [facility] Last Admin: 04/21/16 11:41 Dose: 1 each Diazepam (Valium) 5 mg PO BIDP PRN PRN Reason: Muscle Spasm Last Admin: 04/14/16 23:29 Dose: 5 mg Docusate Sodium (Colace) 100 mg PO BID [facility] Last Admin: 04/21/16 09:03 Dose: 100 mg Heparin Sodium (Porcine) (Heparin) 5,000 unit SQ Q12 [facility] Last Admin: 04/21/16 09:02 Dose: 5,000 unit Sodium Chloride (Sodium Chloride 0.9%) 1,000 mls @ 50 mls/hr IV .Q20H [facility] Last Admin: 04/21/16 08:01 Dose: Not Given Gentamicin Sulfate 40 mg/Clindamycin Phosphate 300 mg/Bacitracin 25,000 unit/ Sodium Chloride 503 mls @ 0 mls/hr IRR BID [facility] PRN Reason: As Directed Last Admin: 04/21/16 10:33 Dose: 1 mls/hr Ertapenem 1 gm/ Sodium (Chloride) 50 mls @ 100 mls/hr IV Q24H [facility] Insulin Glargine (Lantus) 26 unit SQ HS [facility] Last Admin: 04/20/16 22:34 Dose: 26 unit Insulin Human Lispro (Humalog) 7 unit SQ DAILY [facility] Last Admin: 04/21/16 09:02 Dose: 7 unit Insulin Human Lispro (Humalog) 0 unit SQ ACHS [facility] PRN Reason: Protocol Last Admin: 04/21/16 11:40 Dose: 1 unit Ondansetron HCl (Zofran) 4 mg IV Q4HP PRN PRN Reason: Nausea And Vomiting Last Admin: 04/18/16 14:27 Dose: 4 mg Trazodone HCl (Desyrel) 50 mg PO [facility] Last Admin: 04/20/16 22:03 Dose: 50 mg Medical - PN: A/P - Time Spent With Patient Total time spent is greater than 50% in coordination of care (as documented) at patient's floor/unit and/or counseling patient: 15 - 24 minutes (1) Chronic ulcer of skin Status: Chronic Assessment and plan: * Perineal/scrotal cellulitis/ulceration- on antibiotic coverage for VRE daptomycin per ID recs. Issues managed by hospitalist service * Perineal/scrotal cellulitis- clinically improving on antibiotics * complicated Klebsiella UTI -persistent pyuria. repeat cx pending- On ertapenem * DM type II continue basal prandial insulin. BG at goal * history of paraplegia-continue home meds for spasms * DVT prophylaxis on heparin Plan * continue wound management per Dr. Rangel * await LTC transfer, likely AM Current Visit: No Medical - PN: Qual - Stroke Symptom Onset Unknown: No
[2016-04-21] MEDS ORDERED: ERTAPENEM 1 GM in 0.9 % SODIUM CHLORIDE 50 ML IV SCH (16:00)
[2016-04-21] MEDS ORDERED: DAPTOmycin 500 MG VIAL IV SCH (16:00)
--- NOTE | 2016-04-21 18:01 | General Surgery Progress Note ---
Subjective Patient reports: no new complaints, other (Scrotal and perineal wound, S/P OR debridement. POD # . Patietn progressing well. MDRO) Narrative: Note initiated : 04/21/16 at 5:57 pm Service Date, if different from initiated Date: [] Patient: Adam Rutherford 55 y/o M admitted on 04/13/16 for Wound on Sacrum/ Sepsis. Chief Complaint: [] Objective Temp Pulse Resp BP Pulse Ox 98.2 F 86 20 121/80 95 04/21/16 16:05 04/21/16 04:00 04/21/16 16:05 04/21/16 16:05 04/21/16 16:05 AVSS. No changes COLT. Local wound care is on going and patient is on IV antibiotics as ordered by hospitalist. This patient needs a permanent placement after discharge from REHAB. He is paraplegic for last several years and his living conditions per CM from [facility] facility are very sub optimal. Patient appears aggreable to this suggestion, this time around. - Additional Data Intake & Output - Last 24 hours: Intake & Output 04/19/16 04/20/16 04/21/16 04/22/16 05:59 05:59 05:59 05:59 Intake Total 3440 / 3440 3620 / 3620 3210 / 3210 550 / 550 Output Total 3100 / 3100 2750 / 2750 4275 / 4275 2525 / 2525 Balance 340 / 340 870 / 870 -1065 / -1065 -1974 / -1974 Weight 185 lb 185 lb 8 oz 186 lb 8 oz - Labs 04/18/16 05:11 04/18/16 05:11 Medical - PN: A/P - Time Spent With Patient Total time spent is greater than 50% in coordination of care (as documented) at patient's floor/unit and/or counseling patient: Spoke with patient and TIKI Charge nurse on Med Surg Floor. Patient is scheduled to go to [facility] in [facility] tomorrow April 22, 2016. His local wound care to continue . Clean wound with NS and VASHE solution. Dwell time for VASHE over [address] GCP antibiotic soaked wet to moist gauze dressing and cover with ABD pads Q 12 Hrly. IF AND WHEN patient is back to [facility] after discharge, schedule follow up appointment at wound center. 15 - 24 minutes (1) Sepsis affecting skin Status: Acute Current Visit: Yes (2) Decubitus ulcer, buttock Status: Chronic Current Visit: Yes (3) Chronic ulcer of skin Status: Chronic Current Visit: No
[2016-04-21] MEDS: traZODone HCL 50 MG TABLET PO SCH (21:27)
[2016-04-21] MEDS: INSULIN GLARGINE, HUMAN 1 UNIT/0.01 ML SQ SCH (21:27)
[2016-04-22] MEDS: 0.9 % SODIUM CHLORIDE 1,000 ML IV SCH (04:28)
[2016-04-22] MEDS: INSULIN LISPRO 1 UNIT/0.01 ML UNIT SQ SCH (07:05)
--- NOTE | 2016-04-22 07:08 | Transfer Summary ---
Transfer Discharge Sum: Prov Patient information: Note initiated : 04/22/16 at 7:07 am Service Date, if different from initiated Date: [] Patient: Adam Rutherford 55 y/o M admitted on 04/13/16 for Wound on Sacrum/ Sepsis. Chief Complaint: [] Date of admission: 04/13/16 19:05 Discharge Date: 04/22/16 Primary care physician: [f_Reg Prim Care Provider] Consults: 04/14/16 08:22 Consult to Physician [CONS] Routine Comment: Consulting Provider: Adeel Rangel Reason For Exam: Physician to Consult 04/16/16 10:52 Consult to Physician [CONS] Routine Comment: Consulting Provider: Alessandro Reason For Exam: Physician to Consult Receiving physician/facility: [facility] acute care unit Transfer Discharge Sum: Diag - Discharge Diagnosis (1) Chronic ulcer of skin Status: Chronic Transfer Discharge Sum: Med - Medications Active and Home Medications: Home Medications baclofen 10 mg tablet 10 mg PO Q12H PRN tab 04/25/15 [History Confirmed ] diazepam 5 mg tablet 5 mg PO Q12H tab 04/25/15 [History Confirmed 04/13/16] docusate sodium 100 mg tablet 100 mg PO BID 04/25/15 [History Confirmed 04/13/16 ] insulin glargine units SUB-Q AC 04/25/15 [History Confirmed 02/11/16] mupirocin 2 % topical ointment 1 applic TOPICAL QDAY g 04/25/15 [History Confirmed 04/13/16] DAPTOmycin [Cubicin] 510 mg IV Q24H vial 04/21/16 [Rx] Ertapenem [Invanz] 1 gm IV Q24H vial 04/21/16 [Rx] Insulin Glargine, Human [Lantus] 26 unit SQ HS unit 04/21/16 [Rx] Active Medications Acetaminophen/Hydrocodone Bitart ([place] 5/325mg) 1 tab PO Q4HP PRN PRN Reason: Pain Last Admin: 04/21/16 23:56 Dose: 1 tab Baclofen (Lioresal) 10 mg PO BID CATE Last Admin: 04/21/16 21:27 Dose: 10 mg Daptomycin (Cubicin) 500 mg 6 mg/kg (510 mg) IV Q24H CATE Last Admin: 04/21/16 16:29 Dose: 500 mg Dextrose (Dextrose 50%) 0 ml IV UD PRN PRN Reason: Hypoglycemia Diagnostic Test (Pha) (Accu-Chek) 1 each FS ACHS [facility] Last Admin: 04/22/16 07:05 Dose: 1 each Diazepam (Valium) 5 mg PO BIDP PRN PRN Reason: Muscle Spasm Last Admin: 04/14/16 23:29 Dose: 5 mg Docusate Sodium (Colace) 100 mg PO BID [facility] Last Admin: 04/21/16 21:27 Dose: 100 mg Heparin Sodium (Porcine) (Heparin) 5,000 unit SQ Q12 [facility] Last Admin: 04/21/16 21:27 Dose: 5,000 unit Sodium Chloride (Sodium Chloride 0.9%) 1,000 mls @ 50 mls/hr IV .Q20H [facility] Last Admin: 04/22/16 04:28 Dose: Not Given Gentamicin Sulfate 40 mg/Clindamycin Phosphate 300 mg/Bacitracin 25,000 unit/ Sodium Chloride 503 mls @ 0 mls/hr IRR BID [facility] PRN Reason: As Directed Last Admin: 04/21/16 21:40 Dose: 1 mls/hr Ertapenem 1 gm/ Sodium (Chloride) 50 mls @ 100 mls/hr IV Q24H [facility] Last Admin: 04/21/16 15:51 Dose: 100 mls/hr Insulin Glargine (Lantus) 26 unit SQ [facility] Last Admin: 04/21/16 21:27 Dose: 26 unit Insulin Human Lispro (Humalog) 7 unit SQ DAILY [facility] Last Admin: 04/21/16 09:02 Dose: 7 unit Insulin Human Lispro (Humalog) 0 unit SQ [facility] PRN Reason: Protocol Last Admin: 04/22/16 07:05 Dose: Not Given Ondansetron HCl (Zofran) 4 mg IV Q4HP PRN PRN Reason: Nausea And Vomiting Last Admin: 04/18/16 14:27 Dose: 4 mg Trazodone HCl (Desyrel) 50 mg PO HS [facility] Last Admin: 04/21/16 21:27 Dose: 50 mg Transfer Discharge Sum: Hosp Hospital course: Transfer Diagnosis * Perineal/scrotal cellulitis/ulceration- on antibiotic coverage for VRE- daptomycin as per ID recs to wound care physician Dr. Rangel. Issues managed by hospitalist service * Perineal/scrotal cellulitis- clinically improving on antibiotics/operative debridement by wound care * complicated Klebsiella UTI -persistent pyuria. repeat urine cx negative- On ertapenem * DM type II -BG at goal. basal insulin increased to 26. * history of paraplegia-continue home meds for spasms * DVT prophylaxis on heparin Brief Hospital Course Mr. Rutherford is a 55 year old male with paraparesis and underlying diabetes developed perineal ulcerations/cellulitis . 04/13- Patient admitted with scrotal/perineal cellulitis with extensive necrosis/ ulceration. Wound care consulted. Started on broad antibiotic coverage in light of multidrug resistant VRE/Klebsiella. Admitted to medical floor 04/14- Patient due for surgical debridement. Case discussed with Dr. Rangel wound care physician. Continue antibiotic coverage. Keep nothing by mouth. Review postop. Pre-existing medical condition management on home meds including diabetes/ntispasmodics for paraplegic spasm 04/15- Patient doing well status post operative debridement . refusing LTAC transfer. Ongoing wound care /antibiotics. no overnight fever chills or concerns per staff 04/16- Case management coordinating local SNF transfer. Postoperative day 2. On antibiotic coverage. initial wound culture enterococci. Await final sensitivities for tailoring antibiotic as outpatient. No other concerns per staff 04/17- Patient on ertapenem/levaquin for enterococci/strep viridans on culture. Continue wound care. Await SNF transfer likely Tuesday or Tuesday. UA significant pyuria. On antibiotic coverage. no overnight fever chills or concerns per staff 04/18- Patient doing well. Blood sugars at goal. Refusing metformin/oral hypoglycemics. Patient uses basal insulin as sliding scale and despite education he would not agree to changes. no significant events over 24 hours 04/19- No changes since previous day. alert oriented. Ongoing wound care. Await placement. On antibiotic coverage per physician. 04/20- Pt on abx. Improving cellulitis, post op day 7. VRE on Cx. Persistant pyuria. Per physician ID recommends zosyn and daptomycin to continue for wound infection. no overnight F/C/N/V. Pt complains of perineal itching. Stable BGs and hemodynamics 04/21- On ertapenem/dapto( per ID recs from Dr Rangel's progress note), ongoing wound care, Anticipate discharge to LTAC in AM for continued wound care. No F/C/N/SOB/local discharge, WC ongoing. Post op day 8 04/22- transfer to [facility]. No overnight events. stable hemodynamics. Alert oriented. - Time Spent with Patient Total time spent providing and/or coordinating transfer services: Greater than 30 minutes Transfer Discharge Sum: Exam - Constitutional Vitals: Vital Signs Temp Pulse Resp BP Pulse Ox 04/22/16 04:00 97.7 F 91 H 20 123/76 94 04/22/16 00:00 97.7 F 92 H 20 124/78 93 04/21/16 19:30 97.8 F 100 H 20 127/65 95 04/21/16 16:05 98.2 F 20 121/80 95 04/21/16 07:43 96.8 F L 20 129/81 94 Intake and Output 04/21/16 04/22/16 04/22/16 21:59 05:59 13:59 Intake Total 1500 / 1500 300 / 300 Output Total 1075 / 1075 1825 / 1825 Balance 425 / 425 -1525 / -1525 Intake: IV 1000 / 1000 Sodium Chloride 0.9% 1, 1000 / 1000 000 ml @ 50 mls/hr IV . Q20H [facility] Rx#:[id number] Oral 500 / 500 300 / 300 Output: Urine Catheter Amount 1075 / 1075 525 / 525 Void Amount 1300 / 1300 Other: Meal Dinner Percent of Meal Consumed 100% # Bowel Movements 1 1 Weight 184 lb 8 oz Transfer Discharge Sum: Data Procedures and tests throughout hospitalization: Pending Orders 04/14/16 08:08 Strict NPO .ROUTINE 04/14/16 08:14 Blood Culture PRN PRN 04/14/16 08:22 Consult to Physician [CONS] Routine 04/14/16 13:54 Notify PRN Incentive Spirometry Assess/Tx Q1HWA 04/14/16 16:20 0.9 % Sodium Chloride [Sodium Chloride 0.9%] 1,000 ml IV 50 mls/hr Diazepam [Valium] 5 mg PO BIDP PRN HYDROcodone/APAP 5/325MG [[place] 5/325Mg] 1 tab PO Q4HP PRN Ondansetron [Zofran] 4 mg IV Q4HP PRN 04/14/16 21:00 Baclofen [Lioresal] 10 mg PO BID Docusate Sodium [Colace] 100 mg PO BID Heparin 5,000 unit SQ Q12 traZODone HCL [Desyrel] 50 mg PO HS 04/15/16 09:00 Insulin Lispro [HumaLOG] 7 unit SQ DAILY 04/15/16 11:11 Dextrose 50% See Dose Instructions IV UD PRN 04/15/16 11:30 Accu-Chek 1 each FS ACHS Insulin Lispro [HumaLOG] See Dose Instructions SQ ACHS 04/15/16 Dinner Consistent Carbohydrate Diet 04/16/16 07:44 Wound Care/Dressings BID 04/16/16 09:00 Gentamicin Sulfate 40 mg Clindamycin [Cleocin] 300 mg Bacitracin 25,000 unit Sodium Chloride Irrig Solution [Sodium Chloride] 500 ml IRR BID 04/16/16 09:26 OT [Occupational Therapy Eval & Tx] .Routine Physical Therapy Eval & Tx DAILY 04/16/16 10:52 Consult to Physician [CONS] Routine 04/17/16 21:00 Insulin Glargine, Human [Lantus] 26 unit SQ HS 04/21/16 16:00 DAPTOmycin [Cubicin] 500 mg IV Q24H Ertapenem [INVanz] 1 gm 0.9 % Sodium Chloride [Sodium Chloride 0.9%] 50 ml IV Q24H 04/21/16 18:09 Wound Care/Dressings PRN Transfer Discharge Sum: A/P - Problem Maintenance (1) Chronic ulcer of skin Status: Chronic - Plan Functional capacity at transfer: wheelchair bound Overall status at transfer: patient is progressing back to baseline Disposition: [facility]
[2016-04-22] MEDS: HYDROcodone/APAP 5/325MG TABLET PO PRN (08:10)
[2016-04-22] MEDS: GENTAMICIN SULFATE 40 MG, CLINDAMYCIN 300 MG, BACITRACIN 25,000 UNIT in SODIUM CHLORIDE... IRR SCH (08:10)
== END 2016-04-22 08:35 | DRG 853 ==
LOC: ED 15:11 → MEDSUR 19:05
PROVIDERS: ADMIT Internal Medicine; ATTEND Internal Medicine